=== PATIENT | female | born 1940 | race Asian ===

== ENCOUNTER 2016-10-03 10:49 | Emergency (ER) | payer OTHER, MEDICAID ==
[2016-10-03 10:58] VITALS: RESP 18; TEMP 97.5
[2016-10-03] MEDS ORDERED: IPRATROPIUM/ALBUTEROL 3 ML DEYVIAL IH ONE (11:19)
--- NOTE | 2016-10-03 11:35 | EDPHY ---
H & P Stated Complaint: cough (all family is sick) dialysis patient Time Seen by Provider: 10/03/16 11:32 HPI/ROS: HPI: This 68-year-old female presents to emergency department with chief concern nasal congestion and intermittently productive cough x4 days. Denies fever, chills, myalgias, shortness of breath, chest pain, abdominal pain, nausea , vomiting, diarrhea, rash. Several members of her family have similar symptoms. No history of asthma or pneumonia. Never smoker. 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 ROS:10 point review of systems is negative other than as stated in HPI Source: Patient - Personal History Current Tetanus/Diphtheria Vaccine: Yes - Medical/Surgical History Hx Asthma: No Hx Chronic Respiratory Disease: Yes Hx Diabetes: Yes Hx Cardiac Disease: Yes Hx Renal Disease: Yes Hx Cirrhosis: No Hx Alcoholism: No Hx HIV/AIDS: No Hx Splenectomy or Spleen Trauma: No Other PMH: CVA, TIA,pacemaker, CRF-dialysis patient with fistula in RUE, DMII, CHF, cholecystectomy - Family History Significant Family History: No pertinent family hx - Social History Smoking Status: Never smoked Alcohol Use: None Drug Use: None - Physical Exam Exam: Temp 36.4, heart rate 67, respiratory rate 18, blood pressure 109/47, 98% on room air General: Awake, alert, calm, cooperative. No acute distress. Head: Normalocephalic. Atraumatic. EENT: PERRLA. EOMI. No pallor or injection. Anicteric. No nystagmus. No injection. TMs intact bilaterally with normal landmarks. Rhinorrhea present with moderately erythematous nasal turbinates. Oropharynx without redness, exudates, or lesions. Tonsils 2+ bilaterally, no exudates. Neck: Supple, nontender. No lymphadenopathy. Full range of motion. No meningismus. Respiratory: Breathing unlabored. Breath sounds with few expiratory scattered wheezes. Few scattered rhonchi. No adventitious sounds. CV: Chest nontender, atraumatic. Heart rate regular. No murmur, distal pulses 2+ bilaterally. Brisk cap refill all extremities. GI: Abdomen soft, nontender. Bowel sounds normoactive and positive x4 quadrants. Neuro: Alert. Oriented x 3. Speech clear. Nonfocal cranial nerves throughout. Sensation intact all extremities. Skin: Skin warm, dry, intact. No rashes, abrasions, or lacerations. Skin turgor normal. Extremities: Full range of motion in all 4 extremities. Strength 5+ all extremities. Constitutional: Initial Vital Signs Temperature (C) 36.4 C 10/03/16 10:55 Heart Rate 67 10/03/16 10:55 Respiratory Rate 18 10/03/16 10:55 Blood Pressure 109/47 L 10/03/16 10:55 O2 Sat (%) 98 10/03/16 10:55 O2 Delivery Mode Room Air Allergies/Adverse Reactions: Penicillins Allergy (Severe, Verified 10/03/16 10:54) Anaphylaxis Home Medications: Medication Instructions Recorded Bimatoprost 0.01% [Lumigan 0.01% 1 drops EACHEYE DAILY18 03/05/13 (*)] Clopidogrel Bisulfate [Plavix (*)] 75 mg PO DAILY18 03/05/13 Losartan Potassium [Cozaar] 100 mg PO DAILY18 03/05/13 Simvastatin [Zocor 40 mg] 40 mg PO DAILY 03/05/13 amLODIPine BESYLATE [Norvasc 10 mg 10 mg PO DAILY18 03/05/13 (*)] Aspirin [Aspirin 325 mg (*)] 325 mg PO DAILY18 01/17/14 Cholecalciferol Vit D3 [Vitamin D3 1,000 units PO DAILY 01/17/14 (*)] Docusate Sodium [Colace 100 MG (*)] 100 mg PO TIDMEAL 01/17/14 Levothyroxine [Synthroid 112 mcg 112 mcg PO DAILY@06 01/17/14 (*)] Sevelamer Carbonate [Renvela] 1,600 mg PO DAILY@12 01/17/14 Sevelamer Carbonate [Renvela] 2,400 mg PO BID 01/17/14 Atenolol [Tenormin 50 mg (*)] 50 mg PO BIDMEAL 06/01/14 Herbals/Supplements -Info Only 1 ea PO DAILY 06/01/14 Lactulose [Cephulac 20 gm/30 ml 20 gm PO MOWEFR@1300 06/01/14 oral soln (*)] hydrALAZINE [Apresoline] 25 mg PO BID 06/01/14 Bimatoprost [Lumigan] 1 drop EACHEYE HS 03/06/16 Brinzolamide/Brimonidine Tart 1 drop EACHEYE BID 03/06/16 [Simbrinza 1%-0.2% Eye Drops] Clindamycin HCl [Cleocin HCl] 300 mg PO TID 03/06/16 Insulin Detemir [Levemir] 16 units SC AUGUSTIN@08 03/06/16 Insulin Detemir [Levemir] 20 units SC MOTUWETHFRSA@03/06/16 Albuterol Hfa Anes Only [Proair 2 puffs IH QID PRN #1 mdi 10/03/16 Hfa Anes Only] Azithromycin [Zithromax] 250 mg PO DAILY #6 tab 10/03/16 Medical Decision Making - Diagnostics Imaging: Chest, PA and Lateral History: Cough, dyspnea, possible pneumonia, dialysis patient Comparison: March 18, 2016 Findings: There is chronic or recurrent interstitial disease. There is no new focal infiltrate or consolidation, or pleural effusion. Prominent lung volumes, bronchial wall thickening and cardiomegaly are stable. The pulmonary vascularity does not appear plethora. A right chest wall pacer device and associated bipolar pacer leads remain in place. Right subclavian artery and vein stents remain. Impression: 1. No pneumonia. 2. Chronic cardiomegaly without alveolar pulmonary edema 3. Chronic interstitial lung disease vs recurrent interstitial pulmonary edema . Dictated By: Zaki Veras MD ED Course/Re-evaluation: 1135:68-year-old female presents to emergency department with chief concern nasal congestion with intermittently productive cough times 3-4 days. Several members of her family have similar symptoms. No shortness of breath or chest pain. Afebrile. Vitals stable. Given 1 DuoNeb for scattered expiratory wheezes. Chest x-ray pending. Flu swab negative. 1300: There is no evidence of pneumonia on chest x-ray. Chest x-ray is consistent with chronic interstitial lung disease versus recurrent interstitial pulmonary edema. Patient is 86% on room air with ambulation however she wears 2- 3 L chronically at home. Ambulation with 2.5LO2NC is 97%. Wheezes significantly improved after treatment with DuoNeb. She did go to her Wednesday dialysis last week. Vitals are stable. She is stable for discharge. Will discharge her with albuterol inhaler and have her follow up with primary care Wednesday for recheck without fail Differential Diagnosis: Differential includes but is not limited to in no particular order influenza, pneumonia, bronchitis, other viral URI, reactive airway disease, CHF - Data Points Laboratory Results: 10/03/16 11:30 Influenza Typ A,B (DFA) NEGATIVE FOR FLU (NEGATIVE) Medications Given: Discontinued Medications Albuterol/Ipratropium (Duoneb) 3 ml IH EDNOW ONE Stop: 10/03/16 11:20 Last Admin: 10/03/16 11:30 Dose: 3 ml Departure - Departure Disposition: Home, Routine, Self-Care Clinical Impression: Interstitial lung disease Upper respiratory infection Qualifiers: URI type: unspecified viral URI Qualifier Code: (J06.9) Acute upper respiratory infection, unspecified Condition: Good Instructions: Upper Respiratory Infection (ED) Additional Instructions: Plan: Recheck with primary care provider on Wednesday without fail--When you call to schedule appointment, please let the office know you are an "ER follow up" appointment" Drink plenty of fluids. Rest. Use your albuterol inhaler 2 puffs every 4-6 hours for shortness of breath, wheezing. Azithromycin antibiotic for 5 days as prescribed You may use Mucinex/guaifenesin over the counter to help expectorate mucus with your cough. Use saline spray or saline irrigation to each nostril twice daily-morning and evening. For sore throat, gargle with warm salt water three times daily. Return to Urgent Care or ER if you develop chest pain, difficulty breathing, or difficulty swallowing. Follow up as directed--tell the office you are an "ER follow up appointment when you call. Return here promptly for worsening symptoms such as facial/tooth pain, chest pain, shortness of breath, unremitting fever, nausea, vomiting, difficulty swallowing. Referrals: Octavio Heath MD [Primary Care Provider] - As per Instructions Prescriptions: Albuterol Hfa Anes Only [Proair Hfa Anes Only] 2 puffs IH QID PRN #1 mdi PRN Reason: Short Of Breath/Dyspnea Azithromycin [Zithromax] 250 mg PO DAILY #6 tab
--- NOTE | 2016-10-03 12:23 | DX ---
Chest, PA and Lateral History: Cough, dyspnea, possible pneumonia, dialysis patient Comparison: March 18, 2016 Findings: There is chronic or recurrent interstitial disease. There is no new focal infiltrate or con solidation, or pleural effusion. Prominent lung volumes, bronchial wall thickening and cardiomegaly a re stable. The pulmonary vascularity does not appear plethora. A right chest wall pacer device and as sociated bipolar pacer leads remain in place. Right subclavian artery and vein stents remain. Impression: 1. No pneumonia. 2. Chronic cardiomegaly without alveolar pulmonary edema 3. Chronic interstitial lung disease vs recurrent interstitial pulmonary edema .
[2016-10-03 13:38] VITALS: BP 122/57; PULSE 55; O2SAT 100
== END 2016-10-03 13:37 | disposition home or self-care (01) ==
DX: J84.9 Interstitial pulmonary disease, unspecified (principal); J06.9 Acute upper respiratory infection, unspecified; E11.9 Type 2 diabetes mellitus without complications; I50.9 Heart failure, unspecified; Z79.4 Long term (current) use of insulin; Z79.82 Long term (current) use of aspirin; Z86.73 Personal history of transient ischemic attack (TIA), and cerebral infarction without residual deficits; Z95.0 Presence of cardiac pacemaker

== ENCOUNTER → 2016-10-20 | Day surgery (SDC) | payer OTHER, MEDICAID ==
[~2016-10-20] MED LIST: IOPAMIDOL (ISOVUE-300) 100 ML BTL IV ONE
== END | disposition home or self-care (01) ==
LOC: FIMAGING 08:24
PROVIDERS: ATTEND Internal Medicine Nephrology
PROC: 05753ZZ Dilation of Right Subclavian Vein, Percutaneous Approach (ICD-10-PCS; principal; 2016-10-20)
PROC: 05793ZZ Dilation of Right Brachial Vein, Percutaneous Approach (ICD-10-PCS; 2016-10-20)
DX: T82.858A Stenosis of other vascular prosthetic devices, implants and grafts, initial encounter (principal); N18.6 End stage renal disease; Z99.2 Dependence on renal dialysis; Z66 Do not resuscitate; I77.1 Stricture of artery
CPT/HCPCS: 36902; 36907; 75962; C1769; C1892; C1725; J1644; Q9967

== ENCOUNTER → 2017-01-19 | Day surgery (SDC) | payer OTHER, MEDICAID ==
[~2017-01-19] MED LIST changes: -IOPAMIDOL (ISOVUE-300) 100 ML BTL IV ONE; +IOPAMIDOL (ISOVUE-300) 100 ML BTL ONE
== END | disposition home or self-care (01) ==
LOC: FIMAGING 08:38
PROVIDERS: ATTEND Radiology Diagnostic Radiology
PROC: 05753ZZ Dilation of Right Subclavian Vein, Percutaneous Approach (ICD-10-PCS; principal; 2017-01-19)
DX: T82.858A Stenosis of other vascular prosthetic devices, implants and grafts, initial encounter (principal); N18.6 End stage renal disease; I12.0 Hypertensive chronic kidney disease with stage 5 chronic kidney disease or end stage renal disease; I48.91 Unspecified atrial fibrillation; I50.9 Heart failure, unspecified; E11.9 Type 2 diabetes mellitus without complications; Z88.0 Allergy status to penicillin
CPT/HCPCS: 37248; C1769; C1894; C1725; J1644; Q9967

== ENCOUNTER → 2017-04-29 | Day surgery (SDC) | payer OTHER, MEDICAID | END | disposition home or self-care (01) | LOC: FIMAGING 08:46 | PROVIDERS: ATTEND Internal Medicine Nephrology | DX: T82.858A Stenosis of other vascular prosthetic devices, implants and grafts, initial encounter (principal); N18.6 End stage renal disease; Z99.2 Dependence on renal dialysis; Z88.0 Allergy status to penicillin | CPT/HCPCS: 36901; 36907; C1769; C1894; C1725; J1644; Q9967 ==

== ENCOUNTER 2017-06-13 16:44 | Inpatient (IN) | payer OTHER, MEDICAID ==
[2017-06-13] MEDS ORDERED: IOPAMIDOL (ISOVUE 370) 100 ML BTL IV ONE (16:49)
--- NOTE | 2017-06-13 16:55 | EDPHY ---
H & P Constitutional: Initial Vital Signs Temperature (C) 36.4 C 06/13/17 17:00 Heart Rate 85 06/13/17 17:00 Respiratory Rate 16 06/13/17 17:00 Blood Pressure 154/62 H 06/13/17 17:00 O2 Sat (%) 2 L 06/13/17 17:00 O2 Delivery Mode Nasal Cannula O2 (L/minute) 0.5 Allergies/Adverse Reactions: Penicillins Allergy (Severe, Verified 04/22/17 14:03) Anaphylaxis Home Medications: Medication Instructions Recorded Clopidogrel Bisulfate [Plavix (*)] 75 mg PO DAILY18 03/05/13 Losartan Potassium [Cozaar] 100 mg PO DAILY18 03/05/13 Simvastatin [Zocor 40 mg] 40 mg PO DAILY 03/05/13 amLODIPine BESYLATE [Norvasc 10 mg 5 mg PO DAILY18 03/05/13 (*)] Aspirin [Aspirin 325 mg (*)] 325 mg PO DAILY18 01/17/14 Cholecalciferol Vit D3 [Vitamin D3 1,000 units PO DAILY 01/17/14 (*)] Levothyroxine [Synthroid 112 mcg 112 mcg PO DAILY@01/17/14 (*)] Sevelamer Carbonate [Renvela] 1,600 mg PO TID 01/17/14 Atenolol [Tenormin 50 mg (*)] 50 mg PO BIDMEAL 06/01/14 Herbals/Supplements -Info Only 1 ea PO DAILY 06/01/14 Lactulose [Cephulac 20 gm/30 ml 20 gm PO PRN 06/01/14 oral soln (*)] Bimatoprost [Lumigan] 1 drop EACHEYE HS 03/06/16 Brinzolamide/Brimonidine Tart 1 drop EACHEYE BID 03/06/16 [Simbrinza 1%-0.2% Eye Drops] Insulin Detemir [Levemir] 16 units SC AUGUSTIN@03/06/16 Insulin Detemir [Levemir] 20 units SC MOTUWETHFRSA@03/06/16 Preservision Areds 2 Softgel 1 tab PO DAILY 04/22/17 Prevacid 30 mg PO BID 04/22/17 Atenolol [Tenormin 50 mg (*)] 50 mg PO DAILY PRN 06/13/17 Folic Acid/Vit B Complex and C 0.8 mg PO DAILY@18 06/13/17 [Renal Vitamin Tablet] Sevelamer Carbonate [Renvela] 1,600 - 2,400 mg PO DAILY@12 06/13/17 Medical Decision Making - Diagnostics Imaging Results: Imaging Impressions Chest X-Ray 06/13/17 16:48 Impression: 1. Minimal fluid overload versus minimal CHF 2. No aspiration or pneumonia. Head CT 06/13/17 16:48 Impression: 1. No evidence of acute ischemia or intracranial hemorrhage. 2. Extensive multifocal encephalomalacia and atrophy have not significantly changed since 2013. Findings discussed with emergency department physician, Yaakov Francisco MD on June 13, 2017 at 5:03 p.m. Head CTA 06/13/17 16:49 Impression: 1. Normal intracranial arterial circulation. No evidence of embolic disease or aneurysm. 2. Patent venous system. Findings discussed with emergency department physician, Yaakov Francisco MD on June 13, 2017 at 5:26 p.m. Neck CTA 06/13/17 16:49 Impression: 1. Age-indeterminate subtotal occlusion (95-99%) of the right internal carotid artery (from the origin to the cavernous segment) is new since 2013. 2. Moderate (50-60%) stenosis origin left internal carotid artery due to calcified plaque. 3. Widely patent bilateral vertebral arteries. Findings discussed with emergency department physician, Yaakov Francisco MD on June 13, 2017 at 5:26 p.m. Measurement of carotid stenosis is based on the residual internal carotid diameter with [place] Symptomatic Carotid Endarterectomy Trial (NASCET) based stenosis levels. Imaging: Discussed imaging studies w/ body recall instructor Radiologist, I viewed and interpreted images myself ED Course/Re-evaluation: CHIEF COMPLAINT: Stroke Alert, right hemiparesis HISTORY OF PRESENT ILLNESS: This is a 77 y/o female arriving emergently via EMS as a Stroke Alert with acute onset right-sided deficits at 15:45, about 1 hour prior to arrival. She has medical history that includes 3 prior strokes, diabetes, CHF, end-stage renal disease, and a pacemaker. She has baseline slurred speech from her prior strokes and had previously had right-sided weakness, though it sounds like this resolved after her last stroke. 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 She is on Plavix and aspirin , but no anticoagulants. History from patient obtained via translation from family member. REVIEW OF SYSTEMS: Unobtainable secondary to patient condition. PHYSICAL EXAM: HR, BP, O2 Sat, RR. Temp noted General Appearance: Alert, well hydrated, right-sided weakness, slurred speech, difficulty following commands. Head: Atraumatic without scalp tenderness or obvious injury Eyes: Pupils equal, round, reactive to light and accommodation, EOMI, no trauma , no injection. Nose: Atraumatic, no rhinorrhea, clear. Throat: There is no erythema or exudates, no lesions, normal tonsils, mucus membranes moist. Neck: Supple, non-tender, no lymphadenopathy. Respiratory: No retractions, no distress, no wheezes, and no accessory muscle use. Lungs are clear to auscultation bilaterally. Cardiovascular: Regular rate and rhythm, no murmurs, rubs, or gallops. Good capillary refill all extremities. Functioning right upper arm fistula with good thrill. Gastrointestinal: Abdomen is soft, non-tender, non-distended, no masses, no rebound, no guarding, no peritoneal signs. Musculoskeletal: Atraumatic. Neurological: Alert, able to resist gravity with right arm and leg but globally weak, slurred speech, difficulty following commands. Skin: No rashes, good turgor, no nodules on palpation. PAST MEDICAL HISTORY: 3 prior CVAs, end-stage renal disease on dialysis, CHF, diabetes PAST SURGICAL HISTORY: pacemaker SOCIAL HISTORY: [place]-speaking. Family member translating for me. Audio Specialist: Dr. 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 Ventricular-paced rhythm. See hard copy and/or "tracemaster" electronic copy for interpretation. DIFFERENTIAL DIAGNOSIS: The differential diagnosis for the patient's neurologic deficits included but was not limited to peripheral causes, central causes including CVA, TIA, electrolyte abnormalities and dehydration, cardiogenic causes, atypical causes like migraine syndrome. MEDICAL DECISION MAKIN: Met EMS upon arrival and took report. This is a 77 y/o female with prior CVAs who presents with improving right-sided deficits that began acutely at 15: 45, about 1 hour prior to arrival. She has slurred speech at baseline from prior stroke per family at bedside. Her EMS BGL is 179. She is on aspirin and Plavix and a dialysis patient. 1646: Patient sent directly to CT for head with and without and head and neck angio. 1650: Consulted with Dr. Winchester, [facility]. Per Dr. Winchester, she is not a candidate for TPA due to prior strokes, existing deficits, and current resolving deficits. 1720: CTA shows huge right internal carotid occlusion. Neurology paged. 1734: Reassessed patient and discussed imaging results with her and her family. 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 Speech and cognition is difficult to assess even through allergy and immunology specialist. 1740: Consulted with Dr. Winchester again to determine if patient is now a TPA candidate since her symptoms are crescendoing-decrescendo. He confirms she is still not a TPA candidate due to our inability to tell what her baseline deficits are. He agrees her occluded right carotid does not make sense with her current symptoms, so it is likely not acute nor related to current symptoms. Labs show hyponatremia, hypochloremia, anemia 1748: Spoke with hospitalist service. Dr. Pelletier accepts admission for stroke. - Data Points Laboratory Results: Laboratory Results 06/13/17 17:00 06/13/17 17:00 06/13/17 06/13/17 06/13/17 17:00 17:00 17:00 WBC 9.31 10^3/uL 10^3/uL (3.80-9.50) RBC 3.15 10^6/uL L 10^6/uL (4.18-5.33) Hgb 10.6 g/dL L g/dL (12.6-16.3) POC Hgb Hct 32.1 % L % (38.0-47.0) POC Hct MCV 101.9 fL H fL (81.5-99.8) MCH 33.7 pg pg (27.9-34.1) MCHC 33.0 g/dL g/dL (32.4-36.7) RDW 17.2 % H % (11.5-15.2) Plt Count 210 10^3/uL 10^3/uL (150-400) MPV 10.7 fL fL (8.7-11.7) Neut % (Auto) 69.1 % % (39.3-74.2) Lymph % (Auto) 11.3 % L % (15.0-45.0) Hale % (Auto) 8.1 % % (4.5-13.0) Eos % (Auto) 9.9 % H % (0.6-7.6) Baso % (Auto) 1.0 % % (0.3-1.7) Nucleat RBC Rel Count 0.0 % % (0.0-0.2) Absolute Neuts (auto) 6.44 10^3/uL 10^3/uL (1.70-6.50) Absolute Lymphs (auto) 1.05 10^3/uL 10^3/uL (1.00-3.00) Absolute Monos (auto) 0.75 10^3/uL 10^3/uL (0.30-0.80) Absolute Eos (auto) 0.92 10^3/uL H 10^3/uL (0.03-0.40) Absolute Basos (auto) 0.09 10^3/uL 10^3/uL (0.02-0.10) Absolute Nucleated RBC 0.00 10^3/uL 10^3/uL (0-0.01) Immature Gran % 0.6 % % (0.0-1.1) Immature Gran # 0.06 10^3/uL 10^3/uL (0.00-0.10) PT 14.1 SEC SEC (12.0-15.0) INR 1.10 (0.83-1.16) POC Sodium Sodium 126 mEq/L L mEq/L (134-144) POC Potassium Potassium 5.5 mEq/L H mEq/L (3.5-5.2) POC Chloride Chloride 86 mEq/L L mEq/L (97-110) Carbon Dioxide 22 mEq/l mEq/l (22-31) Anion Gap 18 mEq/L H mEq/L (8-16) POC BUN BUN 90 mg/dL H mg/dL (7-23) Creatinine 9.1 mg/dL H* mg/dL (0.6-1.0) POC Creatinine Estimated GFR 4 Glucose 116 mg/dL H mg/dL (70-100) POC Glucose Calcium 9.1 mg/dL mg/dL (8.5-10.4) 06/13/17 16:51 WBC RBC Hgb POC Hgb 12.9 gm/dL gm/dL (12.6-16.3) Hct POC Hct 38 % % (38-47) MCV MCH MCHC RDW Plt Count MPV Neut % (Auto) Lymph % (Auto) Hale % (Auto) Eos % (Auto) Baso % (Auto) Nucleat RBC Rel Count Absolute Neuts (auto) Absolute Lymphs (auto) Absolute Monos (auto) Absolute Eos (auto) Absolute Basos (auto) Absolute Nucleated RBC Immature Gran % Immature Gran # PT INR POC Sodium 127 mEq/L L mEq/L (134-144) Sodium POC Potassium 5.1 mEq/L H mEq/L (3.3-5.0) Potassium POC Chloride 90 mEq/L L mEq/L (97-110) Chloride Carbon Dioxide Anion Gap POC BUN 92 mg/dL H mg/dL (7-23) BUN Creatinine POC Creatinine 9.9 mg/dL H* mg/dL (0.6-1.0) Estimated GFR Glucose POC Glucose 128 mg/dL H mg/dL (70-100) Calcium Point of Care Test Results: 06/13/17 16:51 POC Sodium 127 L POC Potassium 5.1 H POC Chloride 90 L POC BUN 92 H POC Creatinine 9.9 H* POC Glucose 128 H Departure - Departure Disposition: [facility] Inpatient Acute Clinical Impression: Hyponatremia, Hypochloremia, Right sided weakness, End stage renal disease CVA (cerebral vascular accident) Qualifiers: CVA mechanism: other Qualified Code(s): I63.8 - Other cerebral infarction Anemia Qualifiers: Anemia type: other cause Other causes of anemia: other cause, not classified Qualified Code(s): D64.89 - Other specified anemias Condition: Serious Referrals: Patient,NotPresent [Primary Care Provider] - As per Instructions Report Scribed for: Yaakov Francisco Report Scribed by: Judy Haney Date of Report: 06/13/17 Time of Report: 17:07
[2017-06-13 17:19] LABS: % IMMATURE GRANULYOCYTES 0.6 % (0.0-1.1); ABSOLUTE IMMATURE GRANULOCYTES 0.06 10^3/uL (0.00-0.10); ADD DIFF? NO; ADD MORPH? NO; ADD SCAN? NO; ATYPICAL LYMPHOCYTE FLAG 0 (0-99); FRAGMENT RBC FLAG 0 (0-99); HEMATOCRIT 32.1 % (38.0-47.0); HEMOGLOBIN 10.6 g/dL (12.6-16.3); LEFT SHIFT FLG 0 (0-99); LIPEMIA HEMOLYSIS FLAG 80 (0-99); MEAN CELL HEMOGLOBIN 33.7 pg (27.9-34.1); MEAN CELL VOLUME 101.9 fL (81.5-99.8); MEAN PLATELET VOLUME 10.7 fL (8.7-11.7); PLATELET CLUMPS FLAG 20 (0-99); PLATELET COUNT 210 10^3/uL (150-400); RED BLOOD CELL COUNT 3.15 10^6/uL (4.18-5.33); RED CELL DISTRIBUTION WIDTH 17.2 % (11.5-15.2)
[2017-06-13 17:28] LABS: INR 1.1 (0.83-1.16); PROTIME(PATIENT) 14.1 SEC (12.0-15.0)
[2017-06-13 17:32] LABS: ANION GAP 18 mEq/L (8-16); CALCIUM 9.1 mg/dL (8.5-10.4); CARBON DIOXIDE 22 mEq/l (22-31); CHLORIDE 86 mEq/L (97-110); GLOMERULAR FILTRATION RATE 4; GLUCOSE 116 mg/dL (70-100); POTASSIUM 5.5 mEq/L (3.5-5.2); SODIUM 126 mEq/L (134-144)
--- NOTE | 2017-06-13 17:33 | CPEKG ---
Heart Rate: 60 RR Interval: 1000 QRSD Interval: 168 QT Interval: 512 QTC Interval: 512 QRS [place]: -71 T Wave [place]: 141 EKG Severity - ABNORMAL ECG - EKG Impression: AFIB/FLUTTER AND VENTRICULAR-PACED RHYTHM Electronically Signed By: Yaakov Francisco 13-Jun-2017 18:19:15
[2017-06-13 17:35] LABS: CREATININE 9.1 mg/dL (0.6-1.0)
[2017-06-13] MEDS ORDERED: ONDANSETRON DISINTEGRATING 4 MG TAB PO PRN (19:16)
[2017-06-13] MEDS ORDERED: ONDANSETRON 4 MG/2 ML VIAL IVP PRN (19:16)
[2017-06-13] MEDS ORDERED: PROMETHAZINE HCL 25 MG/ML INJ IVP PRN (19:16)
[2017-06-13] MEDS ORDERED: ACETAMINOPHEN 325 MG TAB PO PRN (19:16)
[2017-06-13] MEDS ORDERED: ATENOLOL 50 MG TAB PO PRN (19:20)
[2017-06-13] MEDS ORDERED: LACTULOSE 20 GM/30 ML UDCUP PO PRN (19:20)
[2017-06-13] MEDS ORDERED: D50W 25 GM/50 ML SYR IVP PRN (20:33)
[2017-06-13] MEDS ORDERED: D10W 250 ML PRN HYPOGLYCEMIA IV (21:00)
--- NOTE | 2017-06-13 21:30 | GHP ---
[f rep st] HISTORY AND PHYSICAL DATE OF ADMISSION: 06/13/2017 CHIEF COMPLAINT: Right arm and left leg weakness. HISTORY: This is a 77-year-old female who has a past medical history that includes end-stage renal d isease, on chronic hemodialysis, multiple strokes reported at 3, as well as atrial fibrillation, not on chronic anticoagulation due to recurrent bleeding at the fistula site, presenting with acute onset of right arm weakness and left leg weakness. History is obtained per patient's son as patient herse lf has been largely nonverbal since her last stroke and also speaks Tibetan. Patient is able to say a few words in Tibetan and also answer questions yes or no. Per patient's son, today she had inabili ty to move her right arm and essentially would fall to her side if he lifted it in the air. She is a lso having difficulty walking and it seemed as if her left leg was weak. Both of these symptoms have improved to some extent since arrival, but she does remain slightly more weak on the right upper ext remity and left lower extremity. He notes that prior to today, she was in her normal state of health . She denies any chest pain, shortness of breath, urinary issues. Friends present at bedside are qu ite concerned that this is secondary to her blood sugar, although her blood sugars all throughout the day have been greater than 100. They state that she does become symptomatic if her blood sugar gets as low as 60 or 70. She is on 3 times a week hemodialysis and is due for her next dialysis run on M , tomorrow. She has not missed any recent sessions. PAST MEDICAL HISTORY: 1. End-stage renal disease, on chronic hemodialysis Wednesday, Wednesday, Wednesday. 2. Atrial fibrillation, not on chronic anticoagulation secondary to recurrent bleeds in the past. 3. Hypertension. 4. Diabetes on chronic insulin. 5. CVA x3. 6. Diastolic heart failure. 7. Pulmonary hypertension. 8. Glaucoma. PAST SURGICAL HISTORY: 1. Cholecystectomy. 2. Dialysis fistula. 3. Permanent pacemaker. 4. Gastrostomy tube that has now been removed. FAMILY HISTORY: Parents are . She is unaware of any significant medical issues in her paren ts per prior reports. SOCIAL HISTORY: Patient is originally from [facility], has been here for 15 years. She is and hernandez s 2 sons, 1 of which is at her bedside. REVIEW OF SYSTEMS: This is obtained through the help of patient's son, and is unremarkable except as per HPI. MEDICATIONS: Home medications include: 1. Cholecalciferol. 2. Lactulose. 3. Insulin. 4. PreserVision. 5. Bimatoprost. 6. Simbrinza eye drops. 7. Renal vitamin tablet. 8. Sevelamer. 9. Prevacid. 10. Aspirin. 11. Levothyroxine. 12. Plavix. 13. Amlodipine. 14. Simvastatin. 15. Atenolol. 16. Losartan. ALLERGIES: Penicillin. PHYSICAL EXAM: VITAL SIGNS: BP 169/54, heart rate 61, respiratory rate 16, O2 sats 96% on half a L, temperature 36.5. GENERAL APPEARANCE: This is an elderly female. She is awake and alert. She is i n no acute distress. EYES: Pupils are anicteric. She has difficulty following directions, but extr aocular movements seem to be intact. Pupils equal, round, and reactive. HEENT: Oropharynx is clear . Patient is edentulous. CARDIOVASCULAR: Regular rate and rhythm, no MRG. PULMONARY: CTA bilater ally. Normal work of breathing. ABDOMEN: Soft, nontender, nondistended. EXTREMITIES: No clubbing , cyanosis, or edema. SKIN: Warm dry well perfused. NEURO/PSYCH: Patient is awake and alert. She has about 4/5 weakness on the right compared to the left, but again this is limited by her ability t o follow commands consistently. Left lower extremity is about 4/5, compared to the right. Sensation is intact. Per family states speech is limited, but is at baseline. CLINICAL DATA: Labs reviewed. Significant for a white blood cell count of 9.3, hematocrit of 32, pl atelets of 210. INR is 1.1. Sodium is 126, potassium 5.5, chloride of 86, BUN of 90, creatinine 9.1 , glucose of 116. Head CT personally reviewed and interpreted is unremarkable. Head CTA shows normal intracranial arterial circulation without embolic disease or aneurysm. Neck CTA shows subtotal occlusion 95% to 99% of the right internal carotid. New since 2014, moderate stenosis of the left internal carotid 50% to 60%. EKG personally reviewed and interpreted shows atrial fibrillation, V-paced rhythm. Chest x-ray perso deb reviewed and interpreted shows possible minimal fluid overload. ASSESSMENT AND PLAN: This is a 77-year-old female, past medical history of multiple strokes, atrial fibrillation and end-stage renal disease presenting with new onset right upper extremity and left low er extremity weakness with bilateral carotid disease and atrial fibrillation off anticoagulation. 1. Suspected stroke, somewhat unusual in a patient who has bilateral signs including right upper ext remity and left lower extremity weakness. She does have known atrial fibrillation, but is not curren tly on anticoagulation. She does also have bilateral carotid artery disease, right greater than left on CTA of the neck. Unfortunately, patient is unable to undergo MRI due to pacemaker presence. Hea d CT did not show acute stroke. Plan will be for monitoring on telemetry. Echocardiogram in the [facility]. Neurology consult is pending. The patient was not a t-PA candidate given rapid improvement of her symptoms. 2. Carotid disease, again as per above, patient with 95% to 99% stenosis of the right carotid and 50 % to 60% of the left. In discussion with family and friends present at bedside, she would likely not be interested in surgery if this were recommended. For now, will await neurology consult. 3. Atrial fibrillation. Patient has a permanent pacemaker and is noted to be in atrial fibrillation and V-paced. She is rate controlled. Again, she is not currently on anticoagulation despite a very high CHADS vascular score secondary to having issues with bleeding at her dialysis site. She is on aspirin and Plavix. Consideration of anticoagulation should be considered and this will need to be d iscussed further with patient and her family. 4. End-stage renal disease. Patient is on chronic hemodialysis. Renal has been consulted and likel y patient will undergo dialysis in the morning. 5. Hyponatremia. This is a chronic intermittent problem for this patient with chronic kidney diseas e and likely related to same. Will monitor post dialysis. 6. Diabetes. Blood sugars have been in the low 100s. Family is quite concerned that hypoglycemia c ould be contributing to her presentation although this seems less likely given lack of hypoglycemia. Will continue to check serial fingerstick blood sugars. Will continue her home regimen. 7. Hypertension. She does remain moderately hypertensive, but unlikely to be high enough to be cont ributing to her current presentation. Will continue to monitor. 8. Disposition, inpatient status. Patient will need greater than 48 hours stay for evaluation and m anagement of above. Neurology and Renal have been consulted. PT,OT will need to be involved. 9. Patient is new to my care. Old records reviewed, summarized as per HPI and past medical history. Care plan reviewed with ER physician, including plans for workup of stroke. Further history obtain ed from patient's family present at bedside. /[id number]/MODL
[2017-06-13 21:43] LABS: TROPONIN I 0.023 ng/mL (0.000-0.034)
[2017-06-14] MEDS: BIMATOPROST 0.01% 2.5 ML OPHT.BTL EACHEYE SCH ×2 (04:39→20:58)
[2017-06-14] MEDS: Brinzolamide/Brimonidine Tart [Simbrinza 1%-0.2% Eye Drops] 1 DROP EACHEYE SCH ×3 (04:39→20:59)
[2017-06-14 04:44] LABS: % IMMATURE GRANULYOCYTES 0.5 % (0.0-1.1); ABSOLUTE IMMATURE GRANULOCYTES 0.05 10^3/uL (0.00-0.10); ADD DIFF? NO; ADD MORPH? NO; ADD SCAN? NO; ATYPICAL LYMPHOCYTE FLAG 0 (0-99); FRAGMENT RBC FLAG 0 (0-99); HEMATOCRIT 30.7 % (38.0-47.0); HEMOGLOBIN 10.1 g/dL (12.6-16.3); LEFT SHIFT FLG 0 (0-99); LIPEMIA HEMOLYSIS FLAG 80 (0-99); MEAN CELL HEMOGLOBIN 33.2 pg (27.9-34.1); MEAN CELL HEMOGLOBIN CONCENTR. 32.9 g/dL (32.4-36.7); MEAN PLATELET VOLUME 10.4 fL (8.7-11.7); PLATELET CLUMPS FLAG 0 (0-99); PLATELET COUNT 217 10^3/uL (150-400); RED BLOOD CELL COUNT 3.04 10^6/uL (4.18-5.33); RED CELL DISTRIBUTION WIDTH 17.1 % (11.5-15.2)
[2017-06-14 04:58] LABS: ANION GAP 16 mEq/L (8-16); CARBON DIOXIDE 21 mEq/l (22-31); CHLORIDE 86 mEq/L (97-110); CHOLESTEROL 89 mg/dL (140-220); CHOLESTEROL/HDL RATIO 1.89 RATIO (1.00-4.44); GLOMERULAR FILTRATION RATE 4; GLUCOSE 147 mg/dL (70-100); HIGH DENSITY LIPOPROTEIN 47 mg/dL (40-85); LOW DENSITY LIPOPROTEIN 28 mg/dL (80-100); NON-HIGH DENSITY LIPOPROTEIN 42 mg/dL (90-129); POTASSIUM 5.5 mEq/L (3.5-5.2); SODIUM 123 mEq/L (134-144); TRIGLYCERIDE 72 mg/dL (35-135); VERY LOW DENSITY LIPOPROTEINS 14 mg/dL (8-25)
[2017-06-14 05:07] LABS: TROPONIN I 0.021 ng/mL (0.000-0.034)
--- NOTE | 2017-06-14 07:45 | PDMN ---
Medical Necessity Medical necessity: est los>2mn for suspected stroke with carotid disease; admit for neuro and renal consults, PT/OT; comorbid afib not on AC r/t recurrent bleeding at fistula site, ESRD, DM, htn, heart failure, hyponatemia, hx CVA x 3; per order and H&P 06/13/17
--- NOTE | 2017-06-14 08:26 | SOAPPROG ---
[facility] Progress Note Assessment/Plan: Assessment:Plan: ESRD-regularly MWF at [facility] under the care of Dr. Argueta -plan for Hd today Access-RUE AVF -looks great Anemia-CPM Neuro-s/p CVA -appears to be recovering nicely Hyperkalemia-will Rx with dialysis Dispo-pending 06/14/17 08:24 Subjective: stable overnite, RUE weakness improving, alert and responsive Objective: Vital Signs Temp Pulse Resp BP Pulse Ox 36.3 C 63 22 H 149/84 H 94 06/14/17 07:24 06/14/17 07:24 06/14/17 07:24 06/14/17 07:24 06/14/17 07:24 Laboratory Results 06/14/17 04:16 06/14/17 04:16 PT 14.1 SEC (12.0-15.0) 06/13/17 17:00 INR 1.10 (0.83-1.16) 06/13/17 17:00 Physical Exam - Physical Exam General Appearance: WD/WN, alert, no apparent distress EENT: normal ENT inspection Neck: normal inspection Respiratory: lungs clear, normal breath sounds, No respiratory distress Cardiac/Chest: regular rate, rhythm, No diastolic murmur, No systolic murmur Abdomen: normal bowel sounds, non-tender Skin: normal color, warm/dry Extremities: other (AVF patent with good bruit and thrill), No swelling Neuro/Psych: alert, normal mood/affect ICD10 Worksheet Patient Problems: Problems Problem Status Onset Anemia Acute CVA (cerebral vascular accident) Acute End stage renal disease Acute Hypochloremia Acute Hyponatremia Acute Right sided weakness Acute Chronic Disease Management/Transitional Care Program Active Chronic renal failure Acute Deep venous thrombosis of right upper extremity Acute Diabetes mellitus Acute Stroke Acute Subdural hematoma Acute
[2017-06-14] MEDS: LEVOTHYROXINE 112 MCG TAB PO SCH (08:40)
[2017-06-14] MEDS: PRESERVISION AREDS2 FORMULA EYE VIT 1 EACH PO SCH (11:16)
[2017-06-14] MEDS: CHOLECALCIFEROL VIT D3 1,000 UNITS TAB PO SCH (11:18)
[2017-06-14] MEDS: ATORVASTATIN CALCIUM 20 MG TAB PO SCH (11:19)
[2017-06-14] MEDS: PANTOPRAZOLE SODIUM 40 MG TAB PO SCH ×3 (11:19→20:57)
[2017-06-14] MEDS: Sevelamer Carbonate [Renvela] 800MG TAB PO SCH ×3 (11:28→20:55)
--- NOTE | 2017-06-14 12:22 | NEUROPROG ---
Assessment: HOSPITAL NEUROLOGY CONSULT REQUESTING: Bertram Pelletier MD REASON: possible stroke HPI: 77 year old right-handed woman from [facility] who has a history of ESRD of chronic dialysis, afib with PPM (not anticoagulated due to recurrent AVF bleed), HTN, IDDM, multiple embolic strokes, carotid artery disease who presented to our ED yesterday due to multifocal weakness. Patient has suffered multiple ischemic strokes over the years related to cardioembolism. She is baseline aphasic and does have some difficulty with her right side, though has been ambulatory with assistance. Her son is present at bedside and notes she tends to get weaker when her blood glucose drops. Yesterday, the patient appeared to have worsening right-sided weakness. Specifically, patient was sitting in a chair and her right arm was dangling off to the side. Her sone tried to move the arm and it was flaccid. There was also concern that her left leg was weak. Family carried her to a bed to lay down. They called their food quality tester who instructed them to activate EMS. Her son took a finger stick glucose and noted her sugar to be "good." On transport to the ED, the patient apparently had returning function in her extremities, though this seemed to wax and wane. Telestroke consultation was obtained and she was not a lytic candidate due to improving symptoms. She continues to regain function since admission. Family reports the patient has not missed any dialysis appointment and they report the patient has not been ill recently. ROS: As per the HPI, otherwise a complete 12 point ROS was performed and is negative ALLERGIES AND MEDS: As recorded in the EMR - reviewed and reconciled PFSH: As per the intake H&P by Dr. Pelleiter from yesterday EXAM: VS reviewed in EMR GEN: WDWN laying in NAD HEENT: NCAT, sclera anicteric, conjunctiva not injected, arcus senilis present OU, MMM, oropharynx clear, no scalp tenderness NECK: supple, nontender, no meningismus CV: RRR s1 s2 wo m/r/c/g. Carotid pulses 2+ wo bruit NEURO: MS: awake, alert, attentive. She is non-Australian speaking. Family reports no dysarthria. Baseline aphasia with minimal verbal output. Follows commands. Attends to both sides. She appears flat/withdrawn. Unable to assess higher cortical function due to aphasia. CN: pupils 3mm round and reactive. Intolerant to fundoscopy. Blink to threat in all fileds OU. Primary gaze centered. Full ocular motility, though smooth pursuit with saccadic intrusions and motor impersistence. Facial sensation preserved. Face symmetric. Hearing grossly intact to finger rub. Palatoglossal movements intact. Shoulder shrug and head turn strong. MOTOR: normal bulk/tone. No adventitial movements. UMN pattern of weakness RUE 4+/5, with subtle pronator drift RUE SENSORY: intact LT/PP throughout and symmetric. No extinction. COORD: no ataxia FN/HS. Payam labored R>L. REFLEX: plantars equivocal. No clonus. DTRS trace. GAIT: deferred to PT safety stephy DATA REVIEW: Labs reviewed in EMR PERSONALLY INTERPRETED RESULTS AND DATA: CT head wo - chronic encephalomalacia in the bilateral frontal lobes, left temporal lobe and left parietal lobe. Area of chronic infarct in the right deep white matter/basal ganglia. CTA head/neck - subtotal occlusion of DORIS from origin to intracranial cavernous section, 50-60% stenosis LICA. IMPRESSION AND RECOMMENDATIONS: // SUSPECT RECRUDESCENCE OF OLD STROKE DEFICITS // SUBTOTAL DORIS OCCLUSION // AFIB - NOT ON ANTICOAGULATION // HTN // HLD // IDDM // ESRD OF DIALYSIS // HX MULTIPLE EMBOLIC STROKES Patient with waxing/waning RUE weakness and LLE weakness, continuing to improve. She has PPM, so cannot assess for new stroke from a tissue-based perspective, but clinically the crossed weakness or RUE and LLE does not localize well - could be multifocal embolic, but subtotal ODRIS occlusion would really makes cardioembolism to right anterior circulation improbable (which would cause LLE weakness). I am more concerned about recrudescence of old deficits from a metabolic disturbance. She has old areas of encephalomalacia that would correspond to these multifocal deficits. She is in need of dialysis today - unsure of what her baseline interdialysis lab measures are, but her Cr and BUN are exceedingly high, which could cause old deficits to emerge again. Same with electrolyte disturbance. She has no obvious infection and has not been exposed to sedating/ disinhibiting medications. Would favor seeing how she responds to dialysis today. In any event, if this were to be a new stroke she is already on maximum medical therapy for secondary prevention. She was taken off anticoagulation due to recurrent bleeding, so is on dual antiplatelet therapy. Already on statin with LDL < 70, already on insulin and long-term goal is to have A1c < 6.5. BP is being managed by nephrology. Carotid disease is being managed with medical therapy - she has long-segment subtotal occlusion extending intracranially, so she would not be a CEA candidate , and given the subtotal occlusion and long-segment she would not be a stenting candidate. Her overall health status would likely preclude surgical intervention in any case. Continue to optimize overall metabolic status with primary team and nephrology. Would consider palliative care in the future, as we really don't have much more to offer from a stroke preventive standpoint, in combination with her overall health status. Objective: Vital Signs Temp Pulse Resp BP Pulse Ox 36.4 C 62 20 141/50 H 92 06/14/17 11:59 06/14/17 11:59 06/14/17 11:59 06/14/17 11:59 06/14/17 11:59 Laboratory Results 06/14/17 04:16 06/14/17 04:16 PT 14.1 SEC (12.0-15.0) 06/13/17 17:00 INR 1.10 (0.83-1.16) 06/13/17 17:00 Allergies/Adverse Reactions: Penicillins Allergy (Severe, Verified 04/22/17 14:03) Anaphylaxis
--- NOTE | 2017-06-14 13:24 | ECHO ---
[email or web address] [address] [address] Main: [phone] Fax: Transthoracic Echocardiogram Name: ZURDO AREVALO MR#: [id number] Study Date: 06/14/2017 Study Time: 07:51 AM Date of : 1940 Age: 77 year(s) Height: 152.4 cm (60 in.) Weight: 76.66 kg (169 lb.) BSA: 1.74 m2 Gender: Female Examination: Echo Indication: Ischemic stroke, Pacer Image Quality: Contrast: Requested by: Bertram Pelletier BP: 149 mmHg/84 mmHg Heart Rate: Rhythm: Indication: Ischemic stroke, Pacer Procedure Staff Physical Metallurgist: Ying Woodard Reading Physician: Rashida Nunez Requesting Provider: Conclusions: Normal size left ventricle. The ejection fraction is visually estimated to be 60 %. LV septal wall consistent with conduction abnormality.. Normal size right ventricle. There is a pacemaker lead noted in the right ventricle. The left atrium is mildly to moderately dilated. No bubble study performed (non working IV). Mild to moderate mitral regurgitation. No aortic valve stenosis is present. Moderate to severe tricuspid valve regurgitation. The pulmonary artery pressure is severely increased. RVSP is 70-75 mmHG.. Compared with 11/2015 degree of PHTN is worse Measurements: Chambers Valvular Assessment AV/MV Valvular Assessment TV/PV Normal Normal Normal Name Value Range Name Value Range Name Value Range Ao Kim (MM): 2.9 cm (2.2 cm-3.7 AV meanP mmHg ( - ) TR Vmax: 4.04 mm/s ( - ) cm) MV E Vmax: 1.49 m/s ( - ) TR PGmax: 65 mmHg ( - ) IVSd (2D): 0.9 cm (0.6 cm-1.1 MV A Vmax: 0.48 m/s ( - ) syst. PAP: 75 mmHg ( - ) cm) MV E/A: 3.10 ( - ) LVDd (2D): 4.5 cm (3.9 cm-5.3 cm) LVDs (2D): 3.0 cm (2.1 cm-4 cm) LVPWd (2D): 0.7 cm ( - ) LVOTd 1.7 cm 1.7 cm mm LVEF (2D): 61 (>=54 %) Visual EF: 60 % Patient: ZURDO AREVALO Study Date: 06/14/2017 Page 1 of 2 07:51 AM Continued Measurements: Chambers Valvular Assessment AV/MV Valvular Assessment TV/PV Name Value Name Value Name Value LADs: 4.1 cm MV DecTime: 215 m/s CVP (est.): 10 mmHg LADs Lon.0 cm MV E' Septal: 0.05 m/s LA Area: 24.5 cm2 MV E/E' Septal: 28.80 MV E/E' Lateral: 30.00 Findings: Left Ventricle: Normal size left ventricle. The ejection fraction is visually estimated to be 60 %. Diastolic dysfunction is present. . LV septal wall consistent with conduction abnormality.. Right Ventricle: Normal size right ventricle. There is a pacemaker lead noted in the right ventricle. Left Atrium: The left atrium is mildly to moderately dilated. No bubble study performed (non working IV). Right Atrium: The right atrium is normal in size. Mitral Valve: Mild mitral annular calcification. Mild to moderate mitral regurgitation. Aortic Valve: The aortic valve is tri-leaflet. Aortic sclerosis is present. No aortic valve stenosis is present. There is no aortic valve regurgitation. Tricuspid Valve: The tricuspid valve appears normal. Moderate to severe tricuspid valve regurgitation. The pulmonary artery pressure is severely increased. RVSP is 70-75 mmHG.. Pulmonic Valve: The pulmonic valve is normal in appearance. Trivial pulmonic valve regurgitation. Pericardium: No pericardial effusion. (No Signature Object) Patient: ZURDO AREVALO Study Date: 06/14/2017 Page 2 of 2 07:51 AM [id number]
--- NOTE | 2017-06-14 15:05 | HOSPPROG ---
Hospitalist Progress Note Assessment/Plan: 1. TIA vs CVA with hx prev CVAs -revwd care plan with neuro, likely 'recrudescence' of old CVA bc of wax/ waning sxs -already on max med therapy -plan to re-eval tomorrow after dialysis -will need to review care plan with family/assess resources, consider palliative consult -PT/OT 2. ESRD on HD -appreciate renal assistance -HD today 3. A fib, pacer -revwd echo results -worsening pHTN noted -antiplt but no blood thinners bc of bleeding concern at access sites per history 4. DM, insulin dependent -SSI along with scheduled insulin 5. HTN -home meds 6. Anemia -chronic, stable 7. Hyponatremia/hyperkalemia -chronic -per renal 8. Hypothyroid -home med DISPO- 1-2 more mdnts depending upon re-eval in AM DNR PCP > 30 mins in pt care, new pt to me, reviewing records/coordination of care Subjective: Sleeping but awakens easily. Pleating Supervisor in room. Says she 'ate well' earlier today. Awaiting dialysis. No known v/d/fever recently except 1x yesterday with 'phlegm/vomit.' Seems to be moving all extremeties 'normally' and responding 'normally' per box toe stitcher. Family due to room later. Objective: Vital Signs Temp Pulse Resp BP Pulse Ox 97.5 F 62 20 141/50 H 92 06/14/17 11:59 06/14/17 11:59 06/14/17 11:59 06/14/17 11:59 06/14/17 11:59 Laboratory Results 06/14/17 04:16 06/14/17 04:16 PT 14.1 SEC (12.0-15.0) 06/13/17 17:00 INR 1.10 (0.83-1.16) 06/13/17 17:00 - Time Spent With Patient Time Spent with Patient: greater than 25 minutes Time Spent with Patient: Greater than 25 minutes spent on this patients care, greater than 50% of time spent counseling, educating, and coordinating care regarding the above mentioned plan. - Physical Exam Constitutional: no apparent distress, not in pain, No other Ears, Nose, Mouth, Throat: moist mucous membranes Cardiovascular: regular rate and rhythym Respiratory: no respiratory distress, no rales or rhonchi, clear to auscultation (anteriorally) Gastrointestinal: normoactive bowel sounds, soft, non-tender abdomen Skin: warm Musculoskeletal: other (ESPARZA,) Neurologic: other ( awakens easily, responds to questions) ICD10 Worksheet Patient Problems: Problems Problem Status Onset Anemia Acute CVA (cerebral vascular accident) Acute End stage renal disease Acute Hypochloremia Acute Hyponatremia Acute Right sided weakness Acute Chronic Disease Management/Transitional Care Program Active Chronic renal failure Acute Deep venous thrombosis of right upper extremity Acute Diabetes mellitus Acute Stroke Acute Subdural hematoma Acute
[2017-06-14] MEDS ORDERED: REFRESH TEARS EACHEYE PRN (15:10)
[2017-06-14] MEDS ORDERED: D50W 25 GM/50 ML SYR IVP PRN (15:27)
[2017-06-14] MEDS ORDERED: CARBOXYMETHYLCELLULOSE 1% 0.4 ML DROPERETTE EACHEYE PRN (15:31)
--- NOTE | 2017-06-14 17:04 | ASMTCMCOM ---
CM Note CM Note Notes: Pt admitted with acute CVA, R arm and L leg weakness. Hx ESRD with dialysis MWF. Pt has had [facility] in past. PT has cleared, OT recommending H/HC/24 hr supervision. She live in a [employer] [place] term with good family support. She is mostly nonverbal and from [facility]. Pt's children are her MDPOAs - sons Deyvi and Zeynep [phone]. CM to follow for any d/c needs. Date Signed: 06/14/2017 05:03 PM Electronically Signed By:VLADISLAV Trejo
[2017-06-14] MEDS ORDERED: [UNRECOGNIZED DRUG - OTHER] PO SCH (18:00)
[2017-06-14] MEDS ORDERED: ASPIRIN 325 MG TAB PO SCH (18:00)
[2017-06-14] MEDS ORDERED: ATENOLOL 50 MG TAB PO SCH (18:00)
[2017-06-14] MEDS ORDERED: LOSARTAN POTASSIUM 50 MG TAB PO SCH (18:00)
[2017-06-14] MEDS ORDERED: NEPHROVITE FOLIC ACID/VIT B&C 1 TAB PO SCH (18:00)
[2017-06-14] MEDS ORDERED: CLOPIDOGREL BISULFATE 75 MG TAB PO SCH (18:00)
[2017-06-14] MEDS: INSULIN LISPRO 100 UNIT/ML SC SCH (18:43)
[2017-06-15 05:42] LABS: ALBUMIN 3.9 g/dL (3.5-5.0); ANION GAP 14 mEq/L (8-16); CALCIUM 9.2 mg/dL (8.5-10.4); CARBON DIOXIDE 26 mEq/l (22-31); CHLORIDE 92 mEq/L (97-110); GLOMERULAR FILTRATION RATE 7; GLUCOSE 164 mg/dL (70-100); POTASSIUM 4.4 mEq/L (3.5-5.2); SODIUM 132 mEq/L (134-144)
[2017-06-15] MEDS: LEVOTHYROXINE 112 MCG TAB PO SCH (05:59)
[2017-06-15] MEDS: INSULIN LISPRO 100 UNIT/ML SC SCH ×2 (07:56→12:39)
[2017-06-15] MEDS: Sevelamer Carbonate [Renvela] 800MG TAB PO SCH ×2 (07:59→12:39)
[2017-06-15] MEDS: Brinzolamide/Brimonidine Tart [Simbrinza 1%-0.2% Eye Drops] 1 DROP EACHEYE SCH (11:29)
[2017-06-15] MEDS ORDERED: PANTOPRAZOLE SODIUM 40 MG TAB PO SCH (11:30)
[2017-06-15] MEDS ORDERED: PRESERVISION AREDS2 FORMULA EYE VIT 1 EACH PO SCH (11:30)
[2017-06-15] MEDS ORDERED: CHOLECALCIFEROL VIT D3 1,000 UNITS TAB PO SCH (11:30)
[2017-06-15] MEDS ORDERED: ATORVASTATIN CALCIUM 20 MG TAB PO SCH (11:30)
[2017-06-15] MEDS: PRESERVISION AREDS2 FORMULA EYE VIT 1 EACH PO SCH (11:36)
[2017-06-15] MEDS: ATORVASTATIN CALCIUM 20 MG TAB PO SCH (11:36)
[2017-06-15] MEDS: CHOLECALCIFEROL VIT D3 1,000 UNITS TAB PO SCH (11:37)
[2017-06-15] MEDS: PANTOPRAZOLE SODIUM 40 MG TAB PO SCH (11:37)
[2017-06-15 12:12] VITALS: BP 127/51; PULSE 60; RESP 17; TEMP 97.4; O2SAT 91
--- NOTE | 2017-06-15 14:49 | ASDISCHSUM ---
Discharge Information Plan Status:Home with No Needs Medically Cleared to Leave: Discharge Date:06/15/2017 02:32 PM CM D/C Disposition:Home, Routine, Self-Care ADT D/C Disposition:Home, Routine, Self-Care Projected Discharge Date:06/15/2017 02:32 PM Transportation at D/C: Discharge Delay Reason: Follow-Up Date:06/15/2017 02:32 PM Discharge Slot: Final Diagnosis: Placement Information Patient Contact Information Contact Name:HAM Relationship:Jono Address:[address] Work Phone: City:[place] Alternate Phone: [facility] Code:[place] [address] Email: Financial Information Financial Class: Primary Plan Desc:MEDICARE INPATIENT Primary Plan Number:[id number] Secondary Plan Desc:MEDICA[place] Secondary Plan Number:[id number] Assessment Information [facility] CM Progress Note CM Note CM Note Notes: Pt admitted with acute CVA, R arm and L leg weakness. Hx ESRD with dialysis MWF. Pt has had [facility] in past. PT has cleared, OT recommending H/HC/24 hr supervision. She live in a [employer] snf with good family support. She is mostly nonverbal and from [facility]. Pt's children are her MDPOAs - sons Deyvi and Zeynep [phone]. CM to follow for any d/c needs. Date Signed: 06/14/2017 05:03 PM Electronically Signed By:VLADISLAV Trejo [facility] CM Progress Note CM Note CM Note Notes: Pt medically stable for d/c w family and community support. No CM d/c needs identified. Date Signed: 06/15/2017 02:48 PM Electronically Signed By:VLADISLAV Lopez Intervention Information Intervention Type:*IM-Signed Date of Service:06/15/2017 01:43 PM Patient Type:Inpatient Staff Member:Елена Acuna Hours: Discipline: Severity: Comment:
== END 2017-06-15 14:32 | disposition home or self-care (01) | DRG 64 ==
LOC: EDUNIT# → F3N 18:33
PROVIDERS: ADMIT Internal Medicine; ATTEND Internal Medicine
PROC: 5A1D70Z Performance of Urinary Filtration, Intermittent, Less than 6 Hours Per Day (ICD-10-PCS; principal; 2017-06-14)
DX: I63.8 Other cerebral infarction (principal); I12.0 Hypertensive chronic kidney disease with stage 5 chronic kidney disease or end stage renal disease; N18.6 End stage renal disease; G81.91 Hemiplegia, unspecified affecting right dominant side; E87.1 Hypo-osmolality and hyponatremia; I65.23 Occlusion and stenosis of bilateral carotid arteries; E11.9 Type 2 diabetes mellitus without complications; I50.9 Heart failure, unspecified; I48.91 Unspecified atrial fibrillation; E87.5 Hyperkalemia; D64.9 Anemia, unspecified; Z99.2 Dependence on renal dialysis; Z79.4 Long term (current) use of insulin; Z86.73 Personal history of transient ischemic attack (TIA), and cerebral infarction without residual deficits; Z95.0 Presence of cardiac pacemaker; Z66 Do not resuscitate
CPT/HCPCS: 82947-QW; 92610-GN; 97116-GP; 97161-GP; 97166-GO; 97530-GP; G8978-GP-CI; G8979-GP-CI; G8980-GP-CI; G8987-GO-CL; G8988-GO-CJ; G8996-GN-CH; G8997-GN-CH; G8998-GN-CH; Q9967

== ENCOUNTER → 2017-07-06 | Day surgery (SDC) | payer OTHER, MEDICAID ==
--- NOTE | 2017-07-06 10:23 | PDRADPN ---
Radiology Procedure Note Date of Procedure: 07/06/17 Radiologist: Mat Acharya Anesthesia: Local (Specify) Pre-op Diagnosis: Chronic renal failure Post-op Diagnosis: same Indication: Surveillance of patency of A-V fistula vein Procedure: Balloon angioplasty of right subclavian vein Finding(s): 10 mm balloon plasty of recurrent stenosis of R subclavian vein. Inf/Abcess present in the surg proc area at time of surgery?: No EBL: Minimal Complications: 0
== END | disposition home or self-care (01) ==
LOC: FIMAGING 07:37
PROVIDERS: ATTEND Internal Medicine Nephrology
PROC: 03733ZZ Dilation of Right Subclavian Artery, Percutaneous Approach (ICD-10-PCS; principal; 2017-07-06)
DX: I77.1 Stricture of artery (principal); I77.0 Arteriovenous fistula, acquired; N19 Unspecified kidney failure
CPT/HCPCS: 37246; C1769; C1894; C1725; J1644; Q9967

== ENCOUNTER → 2017-08-31 | Outpatient (CLI) | payer OTHER, MEDICAID | LOC: BMCIMAGING 12:21 | PROVIDERS: ATTEND Internal Medicine | DX: J06.9 Acute upper respiratory infection, unspecified (principal); J98.01 Acute bronchospasm ==

== ENCOUNTER → 2017-10-19 | Day surgery (SDC) | payer OTHER, MEDICAID | END | disposition home or self-care (01) | LOC: FIMAGING 08:44 | PROVIDERS: ATTEND Internal Medicine Nephrology | PROC: B31HYZZ Fluoroscopy of Right Upper Extremity Arteries using Other Contrast (ICD-10-PCS; principal; 2017-10-19) | PROC: 05753ZZ Dilation of Right Subclavian Vein, Percutaneous Approach (ICD-10-PCS; principal; 2017-10-19) | DX: T82.858A Stenosis of other vascular prosthetic devices, implants and grafts, initial encounter (principal); N18.6 End stage renal disease; Z88.0 Allergy status to penicillin; Z99.2 Dependence on renal dialysis | CPT/HCPCS: 36901; 36907; C1769; C1894; C1725; J1644 ==

== ENCOUNTER 2017-11-15 13:05 | Emergency (ER) | payer OTHER, MEDICAID ==
[2017-11-15 13:17] VITALS: TEMP 98.2; O2SAT 94
--- NOTE | 2017-11-15 13:44 | EDPHY ---
H & P Time Seen by Provider: 11/15/17 13:43 HPI/ROS: Chief complaint. Fall HPI. 77-year-old female on blood thinners fell from chair this morning. She did strike her head. No loss of consciousness. This occurred at dialysis and she was sent over for head CT because of the concern being on blood thinners. No neck pain. No other injuries. Patient does not have headache or change in her vision. ROS Constitutional. no fever/chills, no weakness Eyes. no problems with vision ENT. no sore throat, no nasal drainage Cardiovascular. no chest pain Respiratory. no shortness of breath, no cough Abdominal. no abdominal pain, no nausea/vomiting, no diarrhea . no problems urinating MS. Hit left head Skin. no rash Lymph. no swollen glands Neuro. No headache Past Medical/Surgical History: Past medical history significant CVA, TIA, pacemaker, chronic renal failure on dialysis. Diabetes, congestive heart failure, cholecystectomy Social History: Single, nonsmoker, no alcohol Smoking Status: Never smoked Physical Exam: General Appearance: Alert pleasant well-developed female mild distress vital signs are stable Eyes: Pupils equal and round no pallor or injection. ENT, bump to left-sided head Respiratory: There are no retractions, lungs are clear to auscultation. Cardiovascular: Regular rate and rhythm. Gastrointestinal: Abdomen is soft and nontender, no masses, bowel sounds normal. Neurological: Awake and alert, sensory and motor exams grossly normal. Skin: Warm and dry, no rashes. Musculoskeletal: Neck is supple nontender. Extremities symmetrical, full range of motion. Psychiatric: Patient is oriented X 3, there is no agitation. Constitutional: Initial Vital Signs Temperature (C) 36.8 C 11/15/17 13:13 Heart Rate 78 11/15/17 13:13 Respiratory Rate 16 11/15/17 13:13 Blood Pressure 124/68 H 11/15/17 13:13 O2 Sat (%) 94 11/15/17 13:13 O2 Delivery Mode Room Air Allergies/Adverse Reactions: Penicillins Allergy (Severe, Verified 11/15/17 13:12) Anaphylaxis Home Medications: Medication Instructions Recorded Clopidogrel Bisulfate [Plavix (*)] 75 mg PO DAILY18 03/05/13 Losartan Potassium [Cozaar] 100 mg PO DAILY18 03/05/13 Simvastatin [Zocor 40 mg] 40 mg PO DAILY 03/05/13 amLODIPine BESYLATE [Norvasc 10 mg 5 mg PO DAILY18 03/05/13 (*)] Aspirin [Aspirin 325 mg (*)] 325 mg PO DAILY18 01/17/14 Cholecalciferol Vit D3 [Vitamin D3 1,000 units PO DAILY 01/17/14 (*)] Levothyroxine [Synthroid 112 mcg 112 mcg PO DAILY 01/17/14 (*)] Sevelamer Carbonate [Renvela] 2,400 mg PO BIDMEAL 01/17/14 Herbals/Supplements -Info Only 1 ea PO DAILY 06/01/14 Lactulose [Cephulac 20 gm/30 ml 20 gm PO DAILY PRN 06/01/14 oral soln (*)] Bimatoprost [Lumigan] 1 drop EACHEYE HS 03/06/16 Brinzolamide/Brimonidine Tart 1 drop EACHEYE BID 03/06/16 [Simbrinza 1%-0.2% Eye Drops] Insulin Detemir [Levemir] 16 units SC AUGUSTIN@08 03/06/16 Insulin Detemir [Levemir] 20 units SC MOTUWETHFRSA@08 03/06/16 C/E/Zn/Cu/OM3/DHA/EPA/LUT/ZEAX 2 each PO DAILY 04/22/17 [Preservision Areds 2 Softgel] Lansoprazole [Prevacid] 30 mg PO BID 04/22/17 Atenolol [Tenormin 50 mg (*)] 50 mg PO DAILY PRN 06/13/17 Folic Acid/Vit B Complex and C 0.8 mg PO DAILY@18 06/13/17 [Renal Vitamin Tablet] Sevelamer Carbonate [Renvela] 1,600 - 2,400 mg PO DAILY@12 06/13/17 Refresh Tears 1 drop EACHEYE PRN PRN 06/14/17 Medical Decision Making - Diagnostics Imaging Results: Imaging Impressions Head CT 11/15/17 13:54 Impression: 1. No evidence of acute ischemia or intracranial hemorrhage. 2. Multifocal encephalomalacia consistent with remote infarction. Not significantly changed since prior imaging. Findings and recommendations discussed with CHANTAL PONCE at 1445 hour, 2017. Noncontrast head CT reviewed by me and discussed with Dr. Melgar shows no evidence of intracranial bleeding ED Course/Re-evaluation: Re-evaluation 2:45 p.m. Patient is stable. The patient and her caregivers and I discussed imaging study results, treatment plan including criteria for return importance of follow-up and further evaluation. They expressed understanding and agreement Differential Diagnosis: I considered concussion, skull fracture, intracranial bleeding, head contusion Departure - Departure Disposition: Home, Routine, Self-Care Clinical Impression: Head contusion Qualifiers: Encounter type: initial encounter Contusion of head detail: scalp Qualified Code(s): S00.03XA - Contusion of scalp, initial encounter Condition: Good Instructions: Contusion in Adults (ED) Additional Instructions: Ice to sore area of head today. Return for altered mental status, vomiting, worsening headache. May continue regular prescribed medications. Referrals: Octavio Heath MD [Primary Care Provider] - 2-3 days, if not improved
[2017-11-15 15:05] VITALS: BP 112/62; PULSE 63; RESP 18
== END 2017-11-15 15:02 | disposition home or self-care (01) ==
DX: S00.03XA Contusion of scalp, initial encounter (principal); E11.9 Type 2 diabetes mellitus without complications; N18.6 End stage renal disease; Z79.4 Long term (current) use of insulin; Z79.82 Long term (current) use of aspirin; Z99.2 Dependence on renal dialysis; Z86.73 Personal history of transient ischemic attack (TIA), and cerebral infarction without residual deficits; W07.XXXA Fall from chair, initial encounter; Y99.8 Other external cause status

== ENCOUNTER 2017-12-12 19:56 | Inpatient (IN) | payer OTHER, MEDICAID ==
[~2017-12-12 19:56] MED LIST changes: -IOPAMIDOL (ISOVUE-300) 100 ML BTL ONE; +LIDOCAINE 1% *Not for Epidural 20 ML MDV ONE
[2017-12-12 20:06] LABS: PLATELET COUNT 204 10^3/uL (150-400)
[2017-12-12] MEDS ORDERED: IOPAMIDOL (ISOVUE 370) 100 ML BTL IV ONE (20:12)
[2017-12-12 20:21] LABS: INR 1.12 (0.83-1.16); PROTIME(PATIENT) 14.6 SEC (12.0-15.0)
--- NOTE | 2017-12-12 20:23 | EDPHY ---
H & P Time Seen by Provider: 12/12/17 19:58 HPI/ROS: HPI Catatonia. 77-year-old female by ambulance, stroke alert called, 7:20 p.m., sudden onset receptive and expressive aphasia and catatonia. Patient has history of multiple strokes in the past. Usually talks but with slurred speech and ambulates according to family present in the room. She is a DNR, DNI. ROS: Unable to obtain. Past medical history: Multiple CVAs, TIA, pacemaker, chronic renal failure with dialysis Wednesday and Wednesday, fistula in right upper extremity, type 2 diabetes, cholecystectomy, CHF. Social history: Here with family members and . Physical Exam: General Appearance: Eyes are open. Stairs to the left, does not track, no response to verbal commands or questions. This patient generally appears well- hydrated and well-nourished. Head: Normocephalic atraumatic Eyes: Pupils equal and round, 3-2 mm bilaterally, no pallor or injection. No lid edema, erythema or injection. ENT, Mouth: Mucous membranes are moist. The pharyngeal tissues are unremarkable. No edema or swelling. No asymmetry suggestive of abscess. No erythema or exudates. No tongue lacerations or abrasions. Respiratory: There are no retractions, lungs are clear to auscultation anteriorly with good air movement bilaterally. Cardiovascular: Regular rate and rhythm. No murmur. Gastrointestinal: Abdomen is soft on palpation. Neurological: Moving lower extremities non purposefully, moves left upper extremity, no movement of right upper extremity. Receptive and expressive aphasia. Skin: Warm and dry, no rashes. Musculoskeletal: Neck is supple and nontender. Extremities are symmetrical. All joints range without pain or impingement. Psychiatric: No agitation. No depression. Database: EKG: EKG time is 9:00 p.m.; EKG shows a wide complex ventricular paced rhythm with appropriate discordance. Interpreted by me. Imaging: CT head without contrast: Multiple old infarcts. Results discussed with staff radiologist Dr. Riccardo Caldera. CT angiogram of head neck: This study was compared to a previous angiogram from May of 2017. It demonstrates complete occlusion now the right ICA but with good collateral circulation. 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 Otherwise no changes from 2017. 2017 study demonstrated 50-60% occlusion of left ICA and thread like flow of right ICA. Results were discussed with staff radiologist Dr. Riccardo Caldera. Repeat CT head without contrast status post tPA: No obvious hemorrhage. Results discussed with staff radiologist Dr. Riccardo Caldera. Procedures: Emergency department course: Stroke alert called on arrival. After initial assessment patient was sent for initial CT head without contrast. [facility] paged. I discussed results of CT head without contrast with on-call radiologist Dr. Riccardo Caldera. I then sent the patient back to CT suite for angiogram at 8:15 p.m.. Still awaiting call back from [facility]. Spoke to [facility], Dr. Morales at 8:25 p.m.. He will be online to evaluate the patient shortly. 8:35 p.m., [facility] evaluating the patient. He is advising tPA. This is being prepared. Family members are working on final consent. 9:25 p.m., patient is currently receiving tPA drip. No change in neurologic status. Hospitalist paged for admission of this patient to the ICU. 9:40 p.m., I spoke with on-call hospitalist Dr. Morin. Case discussed in detail with him. He accepts this patient for admission. Patient admitted to the ICU. No significant change in her neurologic status. Differential Diagnosis: The differential diagnosis on this patient includes but is not limited to thrombotic CVA. Hemorrhagic CVA unlikely. This represents a partial list of diagnoses considered. These considerations are based on history, physical exam , past history, reassessment and diagnostic testing. Smoking Status: Never smoked Constitutional: Initial Vital Signs Temperature (C) 36.7 C 12/12/17 19:59 Heart Rate 79 12/12/17 19:59 Respiratory Rate 18 12/12/17 19:59 Blood Pressure 169/80 H 12/12/17 19:59 O2 Sat (%) 97 12/12/17 19:59 O2 Delivery Mode Room Air O2 (L/minute) 2 Allergies/Adverse Reactions: Penicillins Allergy (Severe, Verified 12/12/17 20:14) Anaphylaxis Home Medications: Medication Instructions Recorded Clopidogrel Bisulfate [Plavix (*)] 75 mg PO DAILY18 03/05/13 Losartan Potassium [Cozaar] 100 mg PO DAILY18 03/05/13 Simvastatin [Zocor 40 mg] 40 mg PO HS 03/05/13 amLODIPine BESYLATE [Norvasc 10 mg 5 mg PO DAILY18 03/05/13 (*)] Aspirin [Aspirin 325 mg (*)] 325 mg PO DAILY18 01/17/14 Cholecalciferol Vit D3 [Vitamin D3 1,000 units PO DAILY 01/17/14 (*)] Levothyroxine [Synthroid 112 mcg 112 mcg PO DAILY 01/17/14 (*)] Sevelamer Carbonate [Renvela] 1,600 mg PO BIDMEAL 01/17/14 Herbals/Supplements -Info Only 1 ea PO DAILY 06/01/14 Bimatoprost [Lumigan] 1 drop EACHEYE HS 03/06/16 Brinzolamide/Brimonidine Tart 1 drop EACHEYE BID 03/06/16 [Simbrinza 1%-0.2% Eye Drops] Insulin Detemir [Levemir] 16 units SC AUGUSTIN@08 03/06/16 Insulin Detemir [Levemir] 20 units SC MOTUWETHFRSA@08 03/06/16 C/E/Zn/Cu/OM3/DHA/EPA/LUT/ZEAX 2 each PO DAILY 04/22/17 [Preservision Areds 2 Softgel] Lansoprazole [Prevacid] 30 mg PO BID 04/22/17 Atenolol [Tenormin 50 mg (*)] 50 mg PO DAILY PRN 06/13/17 Folic Acid/Vit B Complex and C 0.8 mg PO DAILY@18 06/13/17 [Renal Vitamin Tablet] Sevelamer Carbonate [Renvela] 1,600 mg PO DAILY@12 06/13/17 Refresh Tears 1 drop EACHEYE PRN PRN 06/14/17 Medical Decision Making - Diagnostics Imaging Results: Imaging Impressions Head CT 12/12/17 19:59 Impression: 1. No definite acute intracranial findings. 2. Extensive multifocal encephalomalacia from previous infarcts. Findings discussed with Sara Larkin MD on December 12, 2017 at 2008 hours. Neck CTA 12/12/17 19:59 Impression: 1. No definite acute findings with age-indeterminate occlusion of the string- like right internal carotid artery proximal to the skull base, previously equivocally patent through the skull base. If symptoms persist and clinical suspicion warrants, consider MRI. 2. Increased approximately 70% focal stenosis at the origin of the left internal carotid artery. 3. Cross-filling of the right intracranial circulation via the anterior and posterior communicating arteries. 4. Grossly stable moderate stenosis at the distal aspect of the central brachiocephalic vein stent. 5. Multiple stable findings, as above. Stenoses are calculated using [place] Symptomatic Carotid Endarterectomy Trial (NASCET) criteria. Findings discussed with Sara Larkin MD on December 12, 2017 at 2031 hours. Chest X-Ray 12/12/17 20:00 Impression: Persistent diffuse interstitial prominence with cardiomegaly and probable small effusions suggesting CHF. Critical Care Time: I spent a total of 37 minutes of critical care time in obtaining history, performing a physical exam, bedside monitoring of interventions, collecting and interpreting tests and discussion with consultants but not including time spent performing procedures. - Data Points Laboratory Results: Laboratory Results 12/12/17 19:50 12/12/17 19:50 12/12/17 12/12/17 12/12/17 20:04 19:50 19:50 WBC RBC Hgb POC Hgb 16.7 gm/dL H gm/dL (12.6-16.3) Hct POC Hct 49 % H % (38-47) MCV MCH MCHC RDW Plt Count MPV Neut % (Auto) Lymph % (Auto) [place] % (Auto) Eos % (Auto) Baso % (Auto) Nucleat RBC Rel Count Absolute Neuts (auto) Absolute Lymphs (auto) Absolute Monos (auto) Absolute Eos (auto) Absolute Basos (auto) Absolute Nucleated RBC Immature Gran % Immature Gran # PT 14.6 SEC SEC (12.0-15.0) INR 1.12 (0.83-1.16) APTT 32.5 SEC SEC (23.0-38.0) POC Sodium 131 mEq/L L mEq/L (135-145) Sodium 133 mEq/L L mEq/L (135-145) POC Potassium 5.2 mEq/L H mEq/L (3.3-5.0) Potassium 5.6 mEq/L H mEq/L (3.5-5.2) POC Chloride 96 mEq/L L mEq/L (97-110) Chloride 90 mEq/L L mEq/L (97-110) Carbon Dioxide 23 mEq/l mEq/l (22-31) Anion Gap 20 mEq/L H mEq/L (8-16) POC BUN 74 mg/dL H mg/dL (7-23) BUN 82 mg/dL H mg/dL (7-23) Creatinine 8.4 mg/dL H* mg/dL (0.6-1.0) POC Creatinine 8.2 mg/dL H* mg/dL (0.6-1.0) Estimated GFR 5 Glucose 152 mg/dL H mg/dL (70-100) POC Glucose 168 mg/dL H mg/dL (70-100) Calcium 9.3 mg/dL mg/dL (8.5-10.4) Troponin I 0.015 ng/mL ng/mL (0.000-0.034) 12/12/17 19:50 WBC 8.26 10^3/uL 10^3/uL (3.80-9.50) RBC 4.49 10^6/uL 10^6/uL (4.18-5.33) Hgb 14.4 g/dL g/dL (12.6-16.3) POC Hgb Hct 44.5 % % (38.0-47.0) POC Hct MCV 99.1 fL fL (81.5-99.8) MCH 32.1 pg pg (27.9-34.1) MCHC 32.4 g/dL g/dL (32.4-36.7) RDW 16.5 % H % (11.5-15.2) Plt Count 204 10^3/uL 10^3/uL (150-400) MPV 10.4 fL fL (8.7-11.7) Neut % (Auto) 64.8 % % (39.3-74.2) Lymph % (Auto) 12.5 % L % (15.0-45.0) [place] % (Auto) 7.0 % % (4.5-13.0) Eos % (Auto) 14.0 % H % (0.6-7.6) Baso % (Auto) 1.3 % % (0.3-1.7) Nucleat RBC Rel Count 0.0 % % (0.0-0.2) Absolute Neuts (auto) 5.35 10^3/uL 10^3/uL (1.70-6.50) Absolute Lymphs (auto) 1.03 10^3/uL 10^3/uL (1.00-3.00) Absolute Monos (auto) 0.58 10^3/uL 10^3/uL (0.30-0.80) Absolute Eos (auto) 1.16 10^3/uL H 10^3/uL (0.03-0.40) Absolute Basos (auto) 0.11 10^3/uL H 10^3/uL (0.02-0.10) Absolute Nucleated RBC 0.00 10^3/uL 10^3/uL (0-0.01) Immature Gran % 0.4 % % (0.0-1.1) Immature Gran # 0.03 10^3/uL 10^3/uL (0.00-0.10) PT INR APTT POC Sodium Sodium POC Potassium Potassium POC Chloride Chloride Carbon Dioxide Anion Gap POC BUN BUN Creatinine POC Creatinine Estimated GFR Glucose POC Glucose Calcium Troponin I Medications Given: Discontinued Medications Alteplase, Recombinant (Activase) 5.427 mg 0.09 mg/kg (5.427 mg) IV ONCE ONE PRN Reason: Protocol Stop: 12/12/17 20:53 Last Admin: 12/12/17 20:44 Dose: 5.427 mg Alteplase, Recombinant (Activase) 48.843 mg 0.81 mg/kg (48.843 mg) IV ONCE ONE PRN Reason: Protocol Stop: 12/12/17 20:53 Last Admin: 12/12/17 20:45 Dose: 48.843 mg Sodium Chloride (Ns) 50 mls @ 0 mls/hr IV EDNOW ONE PRN Reason: Per Protocol Stop: 12/12/17 20:53 Last Admin: 12/12/17 20:56 Dose: 50 mls Point of Care Test Results: 12/12/17 20:04 POC Sodium 131 L POC Potassium 5.2 H POC Chloride 96 L POC BUN 74 H POC Creatinine 8.2 H* POC Glucose 168 H Departure - Departure Disposition: [facility] Inpatient Acute Clinical Impression: CVA (cerebral vascular accident)
[2017-12-12] MEDS ORDERED: ALTEPLASE 100 MG/100 ML VIAL IV ONE ×2 (20:35→20:52)
--- NOTE | 2017-12-12 20:36 | PDCONSULT ---
Seat Cover Installer Note: [place] Note Demographics Consult Type: Acute Stroke First Name: Clif Last Name: Date of : 1940 Age: 77 Gender: Female Time of initial page (): 12/12/2017 20:21 Time of return call (): 12/12/2017 20:21 Time Ready to Initiate Telemed Consult (): 12/12/2017 20:21 HPI Additional History (Free Text): 77yo woman who had sudden aphasia starting at 720PM. She then became catatonic. She is moving left arm and legs bilaterally. She is not moving the right arm. She has baseline slurred speech from prior strokes, but is ambulatory on her own. Possible tPA candidate: Not on warfarin or NOACs, No ICH history, No recent major surgery, No known active major internal bleeding, No known blood disorders [facility] Past Medical History: Stroke, Transient Ischemic Attack, ESRD on HD Social History: DNR Medications: aspirin, Plavix Exam Vitals: vital signs reviewed SBP: 162 DBP: 68 NIHSS Time (): 12/12/2017 20:29 LOC 1a: 0 = Alert; keenly responsive LOC 1b: 0 = Answers both questions correctly LOC Commands: 0 = Performs both tasks correctly Best Gaze: 2 = Forced deviation, or total gaze paresis not overcome by the oculocephalic maneuver Visual: 2 = Complete hemianopia Facial Palsy: 1 = Minor paralysis (flattened nasolabial fold, asymmetry on smiling) Motor Arm L: 0 = No drift; limb holds 90 (or 45) degrees for full 10 seconds Motor Arm R: 4 = No movement Motor Leg L: 0 = No drift; leg holds 30-degree position for full 5 seconds Motor Leg R: 0 = No drift; leg holds 30-degree position for full 5 seconds Limb Ataxia: 0 = Absent Sensory: 0 = Normal; no sensory loss Best Language: 3 = Mute, global aphasia; no usable speech or auditory comprehension Dysarthria: 2 = Severe dysarthria; patient's speech is so slurred as to be unintelligible Extinction + Inattention: 0 = No abnormality NIHSS: [address]: no bleed, multiple old strokes Assessment Assessment: Acute Ischemic Stroke Plan Lytic/Intervention: IV tPA Time IV tPA Recommended (): 12/12/2017 20:30 Blood Pressure Managment: Labetolol Target Blood Pressure: SBP < 180 and DBP < 100 Labs: Comprehensive metabolic panel, ESR, HgbA1c, Lipid Panel, UDS Imaging: CTA Head and Neck STAT, Please call me back with results NATI if there are signs of occlusion or dissection, MRI brain without Diagnostic test: echocardiogram without bubble Therapy/Eval: NPO until cleared by swallow evaluation, PT/OT, Speech/Swallow therapy consult tPA Administration Recommendations: I have reviewed the risks/benefits of tPA with family and patient. They understand that there is a potential of life threatening hemorrhagic complication from tPA, but feel that benefits outweigh risks and want to proceed with administration of tPA, BP goal< 180/100 for 24hrs post tPA administration, Use Labetolol 10-20mg IV prn or Nicardipine gtt to maintain BP parameters, No antiplatelets or anticoagulants for next 24 hrs unless indicated for emergent IA procedure or other life threatening situation, ICU admission, Call back if there is any decline in neurological condition Other: LDL goal less than 70, telemetry monitoring, I have discussed my recommendations with the referring provider Disposition: transfer to ICU Logistics Telemedicine: Interactive 2 way audio and visual telecommunication technology was utilized during this visit. Provider Location: [place]
[2017-12-12] MEDS ORDERED: NS 50 ML IV ONE (20:52)
[2017-12-12] MEDS ORDERED: ALTEPLASE 1 MG/ML SYR IV ONE (20:52)
[2017-12-12] MEDS ORDERED: BIMATOPROST 0.01% 2.5 ML OPHT.BTL EACHEYE SCH (21:00)
--- NOTE | 2017-12-12 21:01 | CPEKG ---
Heart Rate: 61 RR Interval: 984 P-R Interval: 276 QRSD Interval: 170 QT Interval: 552 QTC Interval: 556 P [place]: 0 QRS [place]: -67 T Wave [place]: 136 EKG Severity - ABNORMAL ECG - EKG Impression: VENTRICULAR-PACED RHYTHM Electronically Signed By: Sara Larkin 12-Dec-2017 23:15:05
[2017-12-12] MEDS ORDERED: ACETAMINOPHEN 650 MG SUPP PR PRN (21:50)
[2017-12-12] MEDS ORDERED: ONDANSETRON 4 MG/2 ML VIAL IVP PRN (21:50)
[2017-12-12] MEDS ORDERED: LABETALOL HCL 5 MG/ML 20 ML MDV IVP PRN (21:53)
[2017-12-12] MEDS ORDERED: D5W 1/2 NS 1,000 ML IV SCH (22:00)
[2017-12-12] MEDS ORDERED: TEARS/DEXTRAN 70/HYPROMELLOSE 15 ML OPHT.BTL EACHEYE PRN (22:05)
[2017-12-12] MEDS ORDERED: CARBOXYMETHYLCELLULOSE 0.5% 0.4 ML DROPERETTE EACHEYE PRN (22:05)
--- NOTE | 2017-12-12 22:36 | PDGENHP ---
History and Physical - Chief Complaint ACUTE CATATONIA - History of Present Illness 77-year-old female presenting with acute catatonia after her caretakers noted more extreme receptive and expressive aphasia with onset at 7:20 p.m. On the day of presentation. Thereafter they noted that she was not following commands and appeared to be catatonic, bring her to the emergency department were was noted that she had dense right upper extremity paresis. Her caretakers report that prior to onset of symptoms, the patient had otherwise been in her usual state of health, which is a shuffling gait, aphasic, but interactive with caretakers and family members. They report that she had not recently been complaining of any infectious symptoms. They report that she has gone to her hemodialysis as scheduled, most recently on Wednesday. In the emergency department she was noted to be moving her bilateral lower extremities and left upper extremity, but not following commands, [facility] determined that tPA was indicated. History Information - Allergies/Home Medication List Allergies/Adverse Reactions: Penicillins Allergy (Severe, Verified 12/12/17 20:14) Anaphylaxis Home Medications: Clopidogrel Bisulfate [Plavix (*)] 75 mg PO DAILY18 03/05/13 [Last Taken ] Losartan Potassium [Cozaar] 100 mg PO DAILY18 03/05/13 [Last Taken 12/11/17] Simvastatin [Zocor 40 mg] 40 mg PO HS 03/05/13 [Last Taken 12/11/17] amLODIPine BESYLATE [Norvasc 10 mg (*)] 5 mg PO DAILY18 03/05/13 [Last Taken ] Aspirin [Aspirin 325 mg (*)] 325 mg PO DAILY18 01/17/14 [Last Taken 12/11/17] Cholecalciferol Vit D3 [Vitamin D3 (*)] 1,000 units PO DAILY 01/17/14 [Last Taken 12/12/17] Levothyroxine [Synthroid 112 mcg (*)] 112 mcg PO DAILY 01/17/14 [Last Taken ] Sevelamer Carbonate [Renvela] 1,600 mg PO BIDMEAL 01/17/14 [Last Taken 12/12/17] Herbals/Supplements -Info Only 1 ea PO DAILY 06/01/14 [Last Taken 04/22/17] Bimatoprost [Lumigan] 1 drop EACHEYE HS 03/06/16 [Last Taken 12/11/17] Brinzolamide/Brimonidine Tart [Simbrinza 1%-0.2% Eye Drops] 1 drop EACHEYE BID 03/06/16 [Last Taken 12/12/17] Insulin Detemir [Levemir] 16 units SC AUGUSTIN@03/06/16 [Last Taken 12/12/17] Insulin Detemir [Levemir] 20 units SC MOTUWETHFRSA@03/06/16 [Last Taken 12/11] C/E/Zn/Cu/OM3/DHA/EPA/LUT/ZEAX [Preservision Areds 2 Softgel] 2 each PO DAILY [Last Taken 12/12/17] Lansoprazole [Prevacid] 30 mg PO BID 04/22/17 [Last Taken 12/12/17] Atenolol [Tenormin 50 mg (*)] 50 mg PO DAILY PRN 06/13/17 [Last Taken Unknown] Folic Acid/Vit B Complex and C [Renal Vitamin Tablet] 0.8 mg PO DAILY@18 [Last Taken 12/11/17] Sevelamer Carbonate [Renvela] 1,600 mg PO DAILY@12 06/13/17 [Last Taken 12/12/17 ] Refresh Tears 1 drop EACHEYE PRN PRN 06/14/17 [Last Taken Unknown] I have personally reviewed and updated: family history, medical history, social history, surgical history - Past Medical History atrial fibrillation (Paroxysmal), CHF (Chronic diastolic), CVA (X3, 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 Recurrent bleeding AV fistula with restenoses, most recently angiogram and a couple weeks ago. Recurrence of previous CVAs in the setting of dense encephalomalacia - Surgical History Additional surgical history: Permanent pacemaker. Subclavian angioplasty September of 2017, with subsequent AV fistula angioplasty. Cholecystectomy. Gastrostomy tube, removed - Family History Additional family history: with upper respiratory viral infection - Social History Smoking Status: Never smoked Alcohol Use: None Drug Use: None Additional social history: Patient originally from [facility], has been in [facility] for 15 years Review of Systems Review of Systems: ROS: 10pt was reviewed & negative except for what was stated in HPI & below Neurological: Reports: other (Aphasic, catatonia) Physical Exam Physical Exam: Temp Pulse Resp BP Pulse Ox 36.7 C 60 20 171/64 H 93 12/12/17 22:15 12/12/17 22:15 12/12/17 22:15 12/12/17 22:15 12/12/17 22:15 O2 (L/minute) 2 Constitutional: no apparent distress, chronically ill appearing, uncomfortable Eyes: other ([place] sclera) Ears, Nose, Mouth, Throat: other (Drooling) Cardiovascular: regular rate and rhythym, systolic murmur (106 sternum and apex) , edema (Trace bilateral lower extremity), No irregularly irregular, No tachycardia Respiratory: no respiratory distress, no rales or rhonchi, clear to auscultation Gastrointestinal: normoactive bowel sounds, soft, non-tender abdomen, no palpable masses, No distension Skin: other (No rash or erythema over the right AV fistula site) Neurologic: facial droop (R), other (moving bilat LE and LUE spontaneously but not following commands; only moving proximal RUE but distal ext remains limp; dense expressive/receptive aphasia) Lab Data & Imaging Review 12/12/17 19:50 12/12/17 19:50 WBC 8.26 10^3/uL (3.80-9.50) 12/12/17 19:50 RBC 4.49 10^6/uL (4.18-5.33) 12/12/17 19:50 Hgb 14.4 g/dL (12.6-16.3) 12/12/17 19:50 POC Hgb 16.7 gm/dL (12.6-16.3) H 12/12/17 20:04 Hct 44.5 % (38.0-47.0) 12/12/17 19:50 POC Hct 49 % (38-47) H 12/12/17 20:04 MCV 99.1 fL (81.5-99.8) 12/12/17 19:50 MCH 32.1 pg (27.9-34.1) 12/12/17 19:50 MCHC 32.4 g/dL (32.4-36.7) 12/12/17 19:50 RDW 16.5 % (11.5-15.2) H 12/12/17 19:50 Plt Count 204 10^3/uL (150-400) 12/12/17 19:50 MPV 10.4 fL (8.7-11.7) 12/12/17 19:50 Neut % (Auto) 64.8 % (39.3-74.2) 12/12/17 19:50 Lymph % (Auto) 12.5 % (15.0-45.0) L 12/12/17 19:50 [place] % (Auto) 7.0 % (4.5-13.0) 12/12/17 19:50 Eos % (Auto) 14.0 % (0.6-7.6) H 12/12/17 19:50 Baso % (Auto) 1.3 % (0.3-1.7) 12/12/17 19:50 Nucleat RBC Rel Count 0.0 % (0.0-0.2) 12/12/17 19:50 Absolute Neuts (auto) 5.35 10^3/uL (1.70-6.50) 12/12/17 19:50 Absolute Lymphs (auto) 1.03 10^3/uL (1.00-3.00) 12/12/17 19:50 Absolute Monos (auto) 0.58 10^3/uL (0.30-0.80) 12/12/17 19:50 Absolute Eos (auto) 1.16 10^3/uL (0.03-0.40) H 12/12/17 19:50 Absolute Basos (auto) 0.11 10^3/uL (0.02-0.10) H 12/12/17 19:50 Absolute Nucleated RBC 0.00 10^3/uL (0-0.01) 12/12/17 19:50 Immature Gran % 0.4 % (0.0-1.1) 12/12/17 19:50 Immature Gran # 0.03 10^3/uL (0.00-0.10) 12/12/17 19:50 PT 14.6 SEC (12.0-15.0) 12/12/17 19:50 INR 1.12 (0.83-1.16) 12/12/17 19:50 APTT 32.5 SEC (23.0-38.0) 12/12/17 19:50 POC Sodium 131 mEq/L (135-145) L 12/12/17 20:04 Sodium 133 mEq/L (135-145) L 12/12/17 19:50 POC Potassium 5.2 mEq/L (3.3-5.0) H 12/12/17 20:04 Potassium 5.6 mEq/L (3.5-5.2) H 12/12/17 19:50 POC Chloride 96 mEq/L (97-110) L 12/12/17 20:04 Chloride 90 mEq/L (97-110) L 12/12/17 19:50 Carbon Dioxide 23 mEq/l (22-31) 12/12/17 19:50 Anion Gap 20 mEq/L (8-16) H 12/12/17 19:50 POC BUN 74 mg/dL (7-23) H 12/12/17 20:04 BUN 82 mg/dL (7-23) H 12/12/17 19:50 Creatinine 8.4 mg/dL (0.6-1.0) H* 12/12/17 19:50 POC Creatinine 8.2 mg/dL (0.6-1.0) H* 12/12/17 20:04 Estimated GFR 5 12/12/17 19:50 Glucose 152 mg/dL (70-100) H 12/12/17 19:50 POC Glucose 168 mg/dL (70-100) H 12/12/17 20:04 Calcium 9.3 mg/dL (8.5-10.4) 12/12/17 19:50 Troponin I 0.015 ng/mL (0.000-0.034) 12/12/17 19:50 Visualized and Interpreted Chest x-ray results: Yes Chest X-Ray results: other (interstitial markers visible distally) Visualized and Interpreted imaging results: Yes Interpretation: HCT w/ old infarcts and encephalomalacia Visualized and Interpreted EKG results: Yes EKG Interpretation: Positive for: other (V-paced) Assessment & Plan Assessment: 77-year-old female presents with acute worsening aphasia and paresis, concerning for acute CVA Plan: 1. Acute CVA. 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 Sara Larkin, he has reported to me that Dr. Morales has requested tPA from [facility], tPA given -repeating head CT -discussed with patient's ICU nurse, the patient's neurologic exam will be very challenging to interpret overnight but we should consider spontaneous movement of bilateral lower extremities and left upper extremity as well as some motion in her left mouth to be her current neurologic capabilities and right upper extremity distal paresis as well as right facial palsy to be her current deficits -IV labetalol for systolic blood pressure greater than 180, Cardene drip if not responding -repeat head CT in 24 hr, sooner if neurologic exam changes -ongoing Neurology consultation -hold her current aspirin and Plavix -if patient begins demonstrating any evidence of seizure-like activity, recommend loading her with 500 mg of IV Keppra and considering treatment to continuous EEG monitoring facility, notably [facility] 2. End-stage renal disease. Reviewed outside records, Neurology consultation from 06/14/[address] Robert Monzon suggested that patient's neurologic symptoms on that presentation which consisted of right hemiparesis may have been secondary to recrudence of prior CVA in the setting of end-stage renal disease and electrolyte disturbance -will discuss with Nephrology, recommend optimizing electrolyte status 3. 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 Patient took her morning long-acting insulin, she will be at risk for hypoglycemia tonight given her absence of oral intake -will monitor glucose Q 4, no sliding scale medication given risk of hypoglycemia -will maintain on D5 half normal overnight while she is NPO -recommend dosing with half amp of D 50 if her glucose level gets to be less than 100 to avoid complicating her current neurologic symptoms with hypoglycemic once 4. Chronic diastolic congestive heart failure. Chest x-ray with visible interstitial markings but no significant physical exam evidence of volume overload, monitor while on IV fluids 5. Atrial fibrillation. Paroxysmal, continue home medications once reconciled Diet. NPO, swallow eval in a.m. Code status. Do not resuscitate/do not intubate, her is her POA Prophylaxis. SCDs, hold pharm given tPA Disposition. Anticipated discharge is uncertain, anticipated length stay is greater than 48 hr for reasonable medical necessity including acute CVA requiring tPA and ICU admission. 50 min of critical care time spent with this patient, at bedside in the emergency department, coordinating care with Dr. Sara Larkin, Dr. Danielle, and the patient's ICU nurse, specifically addressing patient's acute CVA which renders her critically ill at this juncture with high risk of morbidity and/or mortality.
[2017-12-12] MEDS ORDERED: niCARdipine/NACL 200 ML IV SCH (23:00)
[2017-12-13] MEDS: EYE EACHEYE SCH ×4 (00:27→22:44)
[2017-12-13] MEDS: BRIMONIDINE EACHEYE SCH ×4 (00:27→22:44)
[2017-12-13] MEDS: BRINZOLAMIDE EACHEYE SCH ×4 (00:27→22:44)
[2017-12-13 04:30] LABS: PLATELET COUNT 184 10^3/uL (150-400)
--- NOTE | 2017-12-13 07:38 | PDMN ---
Medical Necessity Medical necessity: Pt meets IP criteria per MD; est los >2 mn for eval/tx of acute CVA w/catatonia, worsening aphasia & RUE paresis; pt critically ill at this juncture w/high risk of morbidity &/or mortality; admit to ICU for further workup/monitoring, Neuro consult, IVFs & therapies; hx AFIB, CHF, CVA, diabetes , ESRD on hemodialysis w/AV fistula & HTN; per H&P & order 12/12/17
--- NOTE | 2017-12-13 09:44 | ECHO ---
[email or web address] [address] [address] Main: [phone] Fax: Transthoracic Echocardiogram Name: ZURDO AREVALO MR#: [id number] Study Date: 12/13/2017 Study Time: 08:13 AM Date of : 1940 Age: 77 year(s) Height: 152.4 cm (60 in.) Weight: 59.87 kg (132 lb.) BSA: 1.56 m2 Gender: Female Examination: Echo Indication: Ischemic stroke, pacer Image Quality: Contrast: Requested by: Romeo Morin BP: 140 mmHg/62 mmHg Heart Rate: Rhythm: Indication: Ischemic stroke, pacer Procedure Staff Unit Director: Ying Woodard EMILY Reading Physician: Mat Silva MD Requesting Provider: Conclusions: Normal size left ventricle. No LV hypertrophy. Normal global systolic LV function. The ejection fraction is estimated to be 50-55 %. Diastolic dysfunction is present. . LV septal motion is consistent with conduction abnormality.. There is a ICD/Pacer wire noted in the right ventricle. The left atrium is mildly to moderately dilated. An agitated saline study was performed and was negative for intracardiac shunting. The right atrium is mildly dilated. Mild mitral annular calcification. Mild to moderate mitral regurgitation. The aortic valve is normal in appearance and function. There is no aortic valve regurgitation. The tricuspid valve is normal in appearance and function. Moderate to severe tricuspid valve regurgitation. RVSP is 50mmHG.. The aorta is normal. Measurements: Chambers Valvular Assessment AV/MV Valvular Assessment TV/PV Normal Normal Normal Name Value Range Name Value Range Name Value Range Ao Kim (MM): 2.7 cm (2.2 cm-3.7 AV Vmax: 1.27 m/s (1 m/s-1.7 TR Vmax: 3.35 mm/s ( - ) cm) m/s) TR PGmax: 45 mmHg ( - ) IVSd (2D): 0.9 cm (0.6 cm-1.1 AV maxP mmHg ( - ) syst. PAP: 50 mmHg ( - ) cm) AV meanP mmHg ( - ) LVDd (2D): 4.5 cm (3.9 cm-5.3 MV E Vmax: 1.36 m/s ( - ) cm) MV A Vmax: 0.43 m/s ( - ) Patient: ZURDO AREVALO Study Date: 12/13/2017 Page 1 of 2 08:13 AM LVDs (2D): 3.5 cm (2.1 cm-4 MV E/A: 3.16 ( - ) cm) LVPWd (2D): 1.0 cm ( - ) LVOTd 1.8 cm 1.8 cm mm LVEF (2D): 46 (>=54 %) EF Range: 50-55 % Continued Measurements: Chambers Valvular Assessment AV/MV Valvular Assessment TV/PV Name Value Name Value Name Value LADs: 4.2 cm MV E/E' Septal: 39.70 CVP (est.): 5 mmHg LADs Lon.0 cm MV E/E' Lateral: 27.10 LA Area: 23.9 cm2 MR Vena Contracta: 0.3 cm Findings: Left Ventricle: Normal size left ventricle. No LV hypertrophy. Normal global systolic LV function. The ejection fraction is estimated to be 50-55 %. Diastolic dysfunction is present. . LV septal motion is consistent with conduction abnormality.. Right Ventricle: Normal size right ventricle. There is a ICD/Pacer wire noted in the right ventricle. Left Atrium: The left atrium is mildly to moderately dilated. An agitated saline study was performed and was negative for intracardiac shunting. Right Atrium: The right atrium is mildly dilated. Mitral Valve: Mild mitral annular calcification. Mild to moderate mitral regurgitation. Aortic Valve: The aortic valve is normal in appearance and function. There is no aortic valve regurgitation. Tricuspid Valve: The tricuspid valve is normal in appearance and function. Moderate to severe tricuspid valve regurgitation. RVSP is 50mmHG.. Pulmonic Valve: The pulmonic valve is normal in appearance and function. Mild pulmonic valve regurgitation is noted. Aorta: The aorta is normal. Pericardium: No pericardial effusion. (No Signature Object) Patient: ZURDO AREVALO Study Date: 12/13/2017 Page 2 of 2 08:13 AM [id number]
--- NOTE | 2017-12-13 09:47 | ASMTCMCOM ---
CM Note CM Note Notes: 77yr old female admitted for Acute CVA, ESRD, DM-2, CHF, Afib. She has a Hx of CVA x 3, ESRD, DM-2, CHF, Afib, HTN, Pacer, Glaucoma. Patient experiencing worsening aphasia R sided weakness. Tx TPA. CM to follow for discharge needs. Date Signed: 12/13/2017 09:47 AM Electronically Signed By:Miroslava Wallace LCSW
[2017-12-13] MEDS ORDERED: D50W 25 GM/50 ML SYR IVP PRN (10:19)
[2017-12-13] MEDS ORDERED: SODIUM BICARBONATE 50 MEQ/50 ML SYR IVP ONE (10:23)
[2017-12-13] MEDS: INSULIN REGULAR HUMAN 100 UNIT/ML UNIT SC SCH ×3 (10:54→23:31)
--- NOTE | 2017-12-13 15:24 | GCON ---
[f rep st] CONSULTATION CRITICAL CARE CONSULT HISTORY OF PRESENT ILLNESS: This patient is a 77-year-old female with a history of multiple strokes in the past, atrial fibrillation, and end-stage renal disease, who was admitted yesterday when she hernandez d profound mental status changes associated with a right hemiparesis. She was evaluated via the [facility] and tPA was recommended. She has had improvement, though not completely of her symptoms s johnathon that time. She originally is from [facility], though she has been in the [place] for several y ears but speaks very little [place]. Most of the language barrier is managed with her caretakers, wh o implied that she is definitely better since admission. The details of the admission are a little b it unclear at the moment as to whether or not these were recurrent old symptoms or new symptoms. Reg ardless, she was given tPA, had some difficulty with swallow, but is improved and cleared earlier toemily marcum. REVIEW OF SYSTEMS: Otherwise negative. PAST MEDICAL HISTORY: Includes: 1. Stroke x3 in the past. 2. Atrial fibrillation. 3. Diastolic heart failure. 4. Diabetes. 5. End-stage renal disease. 6. Glaucoma. 7. Hypertension. 8. Permanent pacemaker. 9. Pulmonary hypertension. 10. AV fistula bleeding for which therefore she is not on Coumadin, but does take Plavix and aspirin . 11. Hyperlipidemia. 12. Vitamin D deficiency. PAST SURGICAL HISTORY: Includes: 1. Pacer. 2. Angioplasty of her subclavian in September 2017. 3. Cholecystectomy. 4. Remote G-tube. CURRENT MEDICATIONS: Include Lumigan, Humulin, labetalol, nicardipine, Zofran. PHYSICAL EXAMINATION: VITAL SIGNS: She was afebrile and had a blood pressure of 142/63, heart rate 60, respiratory rate 25, oxygen saturation 97% on 2 L. GENERAL: She was an obese female who was in no apparent distress and with a significant language barrier. HEENT: Pupils equally round and react sophia to light, nonicteric and noninjected. Mucous membranes moist without erythema or exudate. NECK: Supple, without adenopathy or jugular vein distention. RESPIRATORY: Breath sounds were distant, b ut clear to auscultation bilaterally without coarse rales. HEART: Irregular with 2/6 systolic murmu r. ABDOMEN: Soft, nontender. EXTREMITIES: No clubbing, cyanosis, or edema. No bleeding from fist ramona site. Right upper extremity was not moving. SKIN: Warm and dry. OBJECTIVE DATA: Includes no change in her previous head CTs. CBC showed a white count of 8.4, hemat ocrit 36, platelets of 184. Sodium is 130, potassium 5.9, chloride 92, bicarb 21, BUN 87, creatinine 8.2, glucose 253. ASSESSMENT AND PLAN: 1. Mental status changes, presumably from an acute stroke, though it is difficult to prove at this t re. Neurology is involved. She has gotten tissue plasminogen activator. It sounds like her swallo wing has gotten substantially better. We will continue with standard protocol. 2. End-stage renal disease. She should get dialyzed this afternoon, based on her laboratory values. 3. Atrial fibrillation. She seems to be rate controlled at this time. 4. Diabetes. We are holding her long-acting insulin to prevent hypoglycemia, but that should improv e when she is able to take per os. /[id number]/[id number]
--- NOTE | 2017-12-13 15:54 | PDCONSULT ---
Real Estate Lawyer Note: Assessment/Plan: ESRD: on HD MWF. - Will do HD today per routine. HTN: BP ok in 140s currently, would continue to hold her BP meds for now and allow some permissive HTN in setting of mental status changes. Hyperkalemia; will modulate on HD. Hyponatremia: will modulate on HD. Anemia; Hgb at goal at 11.8, no need for epo, will monitor. Thank you for the interesting consult. Nephrology will continue to follow, please call if you have any additional questions or concerns. H & P Stated Complaint: STROKE ALERT Time Seen by Provider: 12/12/17 19:58 HPI/ROS: HPI: Ms. Tineo is a 77 yo F with h/o ESRD on HD MWF at [facility] under Dr. Argueta and prior CVA who presented to ER overnight with altered mental status. Pt's family notes that she suddenly seemed to become unresponsive and far more aphasic than her baseline, so brought to ER. She was moving BLE and LUE but not R arm, and was not following commands. She was given tPA in ER and family notes she seemed to wake up more after that. Today she is somnolent but arousable, moving extremities, feeling tired. She is positive for coronavirus, noted that has a mild URI. She was last dialyzed per routine on Wednesday. ROS: unable to obtain 2/2 clinical condition Source: Family, Other (medical record) - Personal History Current Tetanus/Diphtheria Vaccine: Yes Current Tetanus Diphtheria and Acellular Pertussis (TDAP): Yes - Medical/Surgical History Hx Asthma: No Hx Chronic Respiratory Disease: Yes Hx Diabetes: Yes Hx Cardiac Disease: Yes Hx Renal Disease: Yes Hx Cirrhosis: No Hx Alcoholism: No Hx HIV/AIDS: No Hx Splenectomy or Spleen Trauma: No Other PMH: CVA, TIA,pacemaker, CRF-dialysis patient with fistula in RUE, DMII, CHF, cholecystectomy - Family History Significant Family History: No pertinent family hx - Social History Smoking Status: Never smoked - Physical Exam Exam: General: somnolent but arousable, no acute distress Eyes: EOMI, PERRL OP: Clear, MMM Neck: supple, no thyromegaly CV: RRR, no edema BLE Resp: CTA bilat, nonlabored respirations on NC Abd: Soft, NT/ND Neuro: no asterixis Skin: C/D/I, no rash Access: RUE AVF with thrill and bruit appreciated Constitutional: Initial Vital Signs Temperature (C) 36.7 C 12/12/17 19:59 Heart Rate 79 12/12/17 19:59 Respiratory Rate 18 12/12/17 19:59 Blood Pressure 169/80 H 12/12/17 19:59 O2 Sat (%) 97 12/12/17 19:59 O2 Delivery Mode Room Air O2 (L/minute) 2 Allergies/Adverse Reactions: Penicillins Allergy (Severe, Verified 12/12/17 20:14) Anaphylaxis Home Medications: Medication Instructions Recorded Clopidogrel Bisulfate [Plavix (*)] 75 mg PO DAILY18 03/05/13 Losartan Potassium [Cozaar] 100 mg PO DAILY18 03/05/13 Simvastatin [Zocor 40 mg] 40 mg PO HS 03/05/13 amLODIPine BESYLATE [Norvasc 10 mg 5 mg PO DAILY18 03/05/13 (*)] Aspirin [Aspirin 325 mg (*)] 325 mg PO DAILY18 01/17/14 Cholecalciferol Vit D3 [Vitamin D3 1,000 units PO DAILY 01/17/14 (*)] Levothyroxine [Synthroid 112 mcg 112 mcg PO DAILY 01/17/14 (*)] Sevelamer Carbonate [Renvela] 1,600 mg PO BIDMEAL 01/17/14 Herbals/Supplements -Info Only 1 ea PO DAILY 06/01/14 Bimatoprost [Lumigan] 1 drop EACHEYE HS 03/06/16 Brinzolamide/Brimonidine Tart 1 drop EACHEYE BID 03/06/16 [Simbrinza 1%-0.2% Eye Drops] Insulin Detemir [Levemir] 16 units SC AUGUSTIN@08 03/06/16 Insulin Detemir [Levemir] 20 units SC MOTUWETHFRSA@03/06/16 C/E/Zn/Cu/OM3/DHA/EPA/LUT/ZEAX 2 each PO DAILY 04/22/17 [Preservision Areds 2 Softgel] Lansoprazole [Prevacid] 30 mg PO BID 04/22/17 Atenolol [Tenormin 50 mg (*)] 50 mg PO DAILY PRN 06/13/17 Folic Acid/Vit B Complex and C 0.8 mg PO DAILY@18 06/13/17 [Renal Vitamin Tablet] Sevelamer Carbonate [Renvela] 1,600 mg PO DAILY@12 06/13/17 Refresh Tears 1 drop EACHEYE PRN PRN 06/14/17 Lab and Imaging 12/13/17 04:00 12/13/17 04:00 WBC 8.41 10^3/uL (3.80-9.50) 12/13/17 04:00 RBC 3.73 10^6/uL (4.18-5.33) L 12/13/17 04:00 Hgb 11.8 g/dL (12.6-16.3) L 12/13/17 04:00 POC Hgb 16.7 gm/dL (12.6-16.3) H 12/12/17 20:04 Hct 36.6 % (38.0-47.0) L 12/13/17 04:00 POC Hct 49 % (38-47) H 12/12/17 20:04 MCV 98.1 fL (81.5-99.8) 12/13/17 04:00 MCH 31.6 pg (27.9-34.1) 12/13/17 04:00 MCHC 32.2 g/dL (32.4-36.7) L 12/13/17 04:00 RDW 16.2 % (11.5-15.2) H 12/13/17 04:00 Plt Count 184 10^3/uL (150-400) 12/13/17 04:00 MPV 10.7 fL (8.7-11.7) 12/13/17 04:00 Neut % (Auto) 71.4 % (39.3-74.2) 12/13/17 04:00 Lymph % (Auto) 9.8 % (15.0-45.0) L 12/13/17 04:00 [place] % (Auto) 7.6 % (4.5-13.0) 12/13/17 04:00 Eos % (Auto) 10.1 % (0.6-7.6) H 12/13/17 04:00 Baso % (Auto) 0.7 % (0.3-1.7) 12/13/17 04:00 Nucleat RBC Rel Count 0.0 % (0.0-0.2) 12/13/17 04:00 Absolute Neuts (auto) 6.01 10^3/uL (1.70-6.50) 12/13/17 04:00 Absolute Lymphs (auto) 0.82 10^3/uL (1.00-3.00) L 12/13/17 04:00 Absolute Monos (auto) 0.64 10^3/uL (0.30-0.80) 12/13/17 04:00 Absolute Eos (auto) 0.85 10^3/uL (0.03-0.40) H 12/13/17 04:00 Absolute Basos (auto) 0.06 10^3/uL (0.02-0.10) 12/13/17 04:00 Absolute Nucleated RBC 0.00 10^3/uL (0-0.01) 12/13/17 04:00 Immature Gran % 0.4 % (0.0-1.1) 12/13/17 04:00 Immature Gran # 0.03 10^3/uL (0.00-0.10) 12/13/17 04:00 PT 14.6 SEC (12.0-15.0) 12/12/17 19:50 INR 1.12 (0.83-1.16) 12/12/17 19:50 APTT 32.5 SEC (23.0-38.0) 12/12/17 19:50 POC Sodium 131 mEq/L (135-145) L 12/12/17 20:04 Sodium 130 mEq/L (135-145) L 12/13/17 04:00 POC Potassium 5.2 mEq/L (3.3-5.0) H 12/12/17 20:04 Potassium 5.9 mEq/L (3.5-5.2) H 12/13/17 04:00 POC Chloride 96 mEq/L (97-110) L 12/12/17 20:04 Chloride 92 mEq/L (97-110) L 12/13/17 04:00 Carbon Dioxide 21 mEq/l (22-31) L 12/13/17 04:00 Anion Gap 17 mEq/L (8-16) H 12/13/17 04:00 POC BUN 74 mg/dL (7-23) H 12/12/17 20:04 BUN 87 mg/dL (7-23) H 12/13/17 04:00 Creatinine 8.2 mg/dL (0.6-1.0) H* 12/13/17 04:00 POC Creatinine 8.2 mg/dL (0.6-1.0) H* 12/12/17 20:04 Estimated GFR 5 12/13/17 04:00 Glucose 232 mg/dL (70-100) H 12/13/17 04:00 POC Glucose 236 mg/dL (70-100) H 12/13/17 10:47 Hemoglobin A1c 5.9 % (4.0-6.0) 12/13/17 04:00 Estim Average Glucose 123 mg/dL (68-126) 12/13/17 04:00 Calcium 8.6 mg/dL (8.5-10.4) 12/13/17 04:00 Phosphorus 7.5 mg/dL (2.5-4.5) H 12/13/17 04:00 Magnesium 2.7 mg/dL (1.6-2.3) H 12/13/17 04:00 Troponin I 0.015 ng/mL (0.000-0.034) 12/12/17 19:50 Triglycerides 78 mg/dL (35-135) 12/13/17 04:00 Cholesterol 77 mg/dL (140-220) L 12/13/17 04:00 Cholesterol Risk Factr 0.4 (0.2-1.0) 12/13/17 04:00 LDL Cholesterol, Calc 28 mg/dL (80-100) L 12/13/17 04:00 LDL Risk Factor 0.4 (0.2-1.0) 12/13/17 04:00 VLDL Cholesterol 15 mg/dL (8-25) 12/13/17 04:00 Non-HDL Cholesterol 43 mg/dL (90-129) L 12/13/17 04:00 HDL Cholesterol 34 mg/dL (40-85) L 12/13/17 04:00 LDL/HDL Ratio 0.82 RATIO (1.00-3.22) L 12/13/17 04:00 Cholesterol/HDL Ratio 2.26 RATIO (1.00-4.44) 12/13/17 04:00
--- NOTE | 2017-12-13 16:03 | GCON ---
[f rep st] CONSULTATION NEUROLOGY CONSULT DATE OF CONSULTATION: 12/13/2017 REFERRING PHYSICIAN: Romeo Morin MD CHIEF COMPLAINT: Transient neurologic symptoms. HISTORY OF PRESENT ILLNESS: This is a very pleasant 77-year-old lady who is well known to the neurologic service due to previous strokes from atrial fibrillation. She is not on oral anticoagulation due to previous bleeding from an AV fistula. She is on dual anti-platelet therapy with Plavix and full-dose aspirin. She had previous strokes with chronic deficits of aphasia and right hemiparesis. She had acute on chronic right hemiparesis in May of last year , seen by my colleague, Dr. Monzon, who felt this may be post stroke recrudescence in the setting of chronic renal failure. She is on dialysis 3 days per week. Please see previous notes for details. She again had acute on chronic right-sided weakness associated with mental status changes. She was found to be menard virus positive and her has a viral upper respiratory tract infection. She was seen in the ER after a Stroke Alert, and tPA was given. She had CTA of the head and neck. 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 Her left ICA has increased to 70% focal stenosis at the origin. She has cross- filling via anterior and posterior communicating arteries. Multiple stable findings noted in the report. CT of the head without contrast showed stable findings without hemorrhage and multiple areas of encephalomalacia from previous old infarcts. She received tPA and has been fairly stable overnight. For past medical history, social history, family history, home medications and allergies, please see Dr. Morin's note. PHYSICAL EXAMINATION: VITAL SIGNS: Blood pressure is 137/49, heart rate 60, respirations 15. NEUROLOGIC: Higher mental status: Patient is drowsy and has inconsistent response to exam. Her left tax manager public strength is greater than the right. Exam is inconsistent and difficult due to language barrier and aphasia. IMPRESSION AND PLAN: 1. Atrial fibrillation. 2. Previous cerebral infarcts. 3. Transient neurologic symptoms. 4. Status post tissue plasminogen activator. The patient's acute on chronic right-sided weakness in the setting of chronic right-sided weakness and aphasia from previous strokes is unclear. This may be a new transient ischemic attack or stroke from atrial fibrillation or left carotid disease. Alternatively, this may represent post stroke recrudescence in the setting of viral illness or underlying metabolic factors in the setting of chronic renal disease. She is at risk for all of these multiple disorders as noted in her medical history. I discussed all this at length with the patient's son and caregivers. We had a long discussion regarding their philosophy of care which is mainly directed towards comfort care and nonaggressive interventions at this point. She is a [id number] patient and they would not like any aggressive measures. I understood and respect their wishes along with the patient's stated wishes per the family. We discussed options at length and decided together to proceed with the protocol of a noncontrast head CT scan 24 hours after tPA, which will be at 9: 00 p.m. If this scan does not show any post tPA bleeding, please restart anti- platelet therapy in the form of Plavix 75 mg daily and aspirin 325 mg daily as she was on previously. The patient is already on statin therapy. Other medications per Hospital Medicine and Nephrology. She will be dialyzed later today. She can receive therapies including physical therapy as indicated. Depending on how she does, we can potentially consider discharging her back home tomorrow based on her clinical course with the appropriate therapies and caregivers at home. It was a pleasure to meet this patient and her family. No further recommendations now. We will follow up as needed. Please do not hesitate to call with any questions or changes in neurologic status of this very pleasant patient. Thank you for the consultation. seventy total minutes floor time today reviewing extensive previous medical and neurologic records, current imaging and records, along with counseling the patient, family, caregivers, and coordination of care. /[id number]/MODL MTDD
--- NOTE | 2017-12-13 18:39 | HOSPPROG ---
Hospitalist Progress Note Assessment/Plan: Assessment: 77-year-old female presents with acutely worsening aphasia and paresis, concerning for acute CVA vs. prior-CVA recrudence Plan: 1. Acute CVA. Evidenced by worsening aphasia and right upper extremity paresis with high risk of cardioembolic source given her ongoing atrial fibrillation without systemic anticoagulation secondary to bleeding AV fistula, as well as 100% occlusion of the right ICA and 70% occlusion of the left ICA -D#1 s/p tPA -d/w Dr. Will, it will be impossible to objectively determine whether this event was overt acute CVA or prior-CVA recrudence in setting of coronavirus and electrolyte abnl w/ ESRD, but, outside of the tPA which has been administered, the recommendations for medical mgmt remain the same, w/ resumption of DAPT (asa /plavix) this evening after stable HCT obtained, and the guidance given to family that it is highly likely that patient will experience reoccurrence of these symptoms w/ the potential for worsening if in fact this is 2/2 CVA from her underlying LICA plaque and Afib -counseled family and showed son/ her HCT w/ dense encephalomalcia in the L temp/parietal area to help them understand the connection between her permanent, structural brain disease and the symptoms (aphasia and RUE/RLE paresis) they have experienced -current neuro exam reveals flaccid distal RUE and intact sensation on RLE but w / upgoing toes and no volitional movement RLE, albeit she is now able to follow commands w/ movement in LUE/LLE and can open eyes/make verbal expressions more readily than last PM -I counseled the family that palliative+home care will be her most supportive options, and case mgmt is planning on arranging these in AM and discharging if patient stable -I also shared w/ them the anticipated course for her, which includes aspiration pneumonia from her swallow/mobility deficits, we discussed those symptoms of pneumonia, and, given her previously stated goals of care, I encouraged them to care for her at home w/ palliative care/hospice, and not to seek additional hospitalization, as further hospitalization is unlikely to be of medical benefit and comfort is more in line w/ previously stated goals of care 2. End-stage renal disease. D/w Dr. Sheriff, performing HD this PM to optimize electrolyte status 3. 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 Historically labile glucose levels w/ long-acting insulin and poor renal clearance w/ ESRD -low PO intake today, give D50 for gluc < 70 -low-potency ISS 4. Chronic diastolic congestive heart failure. Chest x-ray with visible interstitial markings but no significant physical exam evidence of volume overload, monitor while on IV fluids 5. Atrial fibrillation. Paroxysmal, continue home medications 6. Chronic hypoxic respiratory failure. Recommended to family that they keep o2 on her at all times, as hypoxic w/ transfers upstairs/downstairs can certainly result in hypoxic encephalopathy 7. Hyponatremia. Acute, 2/2 ESRD volume, correct w/ HD 8. Coronavirus viral syndrome. Likely contracted from who has been recently ill, may have led to recrudence of prior CVA deficits 9. Hyperkalemia. Acute, K 5.9, given amp bicarb prior to HD Diet. Swallow recs Code status. Do not resuscitate/do not intubate, her is her MD POA Prophylaxis. SCDs, hold pharm given tPA Disposition. Anticipated discharge is 12/14, remains critically ill w/ f/u HCT this evening. 60 min of critical care time spent with this patient, at bedside in ICU w/ family, the patient's ICU nurse, coordinating w/ Suman Mauro, [place], specifically addressing patient's acute CVA which renders her critically ill at this juncture with high risk of morbidity and/or mortality. Subjective: patient more interactive, expressing herself Objective: Vital Signs Temp Pulse Resp BP Pulse Ox 36.8 C 60 25 H 154/62 H 100 12/13/17 15:45 12/13/17 17:45 12/13/17 17:45 12/13/17 17:45 12/13/17 17:45 Microbiology 12/12/17 23:47 Respiratory Panel (PCR) - Final Nasal, Sinus - Swab Coronavirus Hku1 Detected Laboratory Results 12/13/17 04:00 12/13/17 16:00 12/12/17 12/13/17 12/14/17 05:59 05:59 05:59 Intake Total 475 967 Output Total 0 500 Balance 475 467 PT 14.6 SEC (12.0-15.0) 12/12/17 19:50 INR 1.12 (0.83-1.16) 12/12/17 19:50 - Pending Discharge Pending Discharge Within 24 Hours: Yes Pending Discharge Date: 12/14/17 Pending Discharge Time: 11:00 - Physical Exam Constitutional: no apparent distress, not in pain, chronically ill appearing, No uncomfortable Cardiovascular: regular rate and rhythym, systolic murmur (II/ at sternum and apex), No irregularly irregular, No tachycardia, No edema Respiratory: no respiratory distress, no rales or rhonchi, clear to auscultation Gastrointestinal: normoactive bowel sounds, soft, non-tender abdomen, no palpable masses, No distension Neurologic: other (5/5 motor LUE/LLE, sensation intact all ext, no volitional movement RUE/RLE, toes upgoing RLE) Psychiatric: not anxious, other (lethargic but more arousable than day prior) ICD10 Worksheet Patient Problems: Problems Problem Status Onset Chronic Disease Management/Transitional Care Program Active Stroke Acute Subdural hematoma Acute Diabetes mellitus Acute Deep venous thrombosis of right upper extremity Acute Chronic renal failure Acute CVA (cerebral vascular accident) Acute Hyponatremia Acute Anemia Acute Hypochloremia Acute Right sided weakness Acute End stage renal disease Acute
[2017-12-13] MEDS ORDERED: ATORVASTATIN CALCIUM 20 MG TAB PO SCH (23:15)
[2017-12-13] MEDS: ASPIRIN 325 MG TAB PO SCH (23:25)
[2017-12-13] MEDS: CLOPIDOGREL BISULFATE 75 MG TAB PO SCH (23:25)
[2017-12-13] MEDS: SIMVASTATIN 40 MG PO SCH (23:32)
[2017-12-13] MEDS: BIMATOPROST 0.01% 2.5 ML OPHT.BTL EACHEYE SCH (23:33)
[2017-12-14] MEDS: INSULIN REGULAR HUMAN 100 UNIT/ML UNIT SC SCH ×4 (06:40→23:49)
[2017-12-14] MEDS: EYE EACHEYE SCH ×2 (09:20→20:47)
[2017-12-14] MEDS: LEVOTHYROXINE 112 MCG TAB PO SCH (09:20)
[2017-12-14] MEDS: BRIMONIDINE EACHEYE SCH ×2 (09:20→20:47)
[2017-12-14] MEDS: BRINZOLAMIDE EACHEYE SCH ×2 (09:20→20:47)
[2017-12-14] MEDS: PANTOPRAZOLE SODIUM 40 MG TAB PO SCH (09:20)
--- NOTE | 2017-12-14 09:51 | NEUROPROG ---
Assessment: 1. Previous cerebral infarcts 2. Atrial fibrillation 3. Carotid disease 4. Acute neurologic deficits 5. Status post tPA The [address] head [address] without contrast did not show any hemorrhage. She was restarted on Plavix 75 mg and aspirin 325 mg daily. The patient cannot be on oral anticoagulation due to bleeding from her AV fistula in regards to her underlying atrial fibrillation. Also, her family does not want any surgical intervention for her carotid disease. She remains weak on the right side. She has chronic right-sided weakness and aphasia from her previous left hemisphere stroke. She certainly may have had a recurrent left hemisphere stroke from either left carotid artery disease or atrial fibrillation. Small vessel disease may also have played a role. In any case, after a long discussion with the family yesterday they do not wish any aggressive interventions such as carotid endarterectomy or stenting. They understand the risks, benefits and alternatives of their medical decision making and have incorporated the patient wishes and philosophy of care. She is also on statin therapy in addition to dual anti-platelet therapy. She will likely discharge home in the near future with therapies as indicated. 35 total minutes floor time; this included review of testing, counseling with the patient and caregivers, and coordination of care. We will continue to follow as needed. Please do not hesitate to call if there are any questions or changes in neurologic status with this very pleasant patient. Subjective: No new symptoms Objective: Vital Signs Temp Pulse Resp BP Pulse Ox 36.6 C 60 19 150/83 H 100 12/13/17 20:45 12/14/17 09:00 12/14/17 09:00 12/14/17 09:00 12/14/17 09:00 Microbiology 12/12/17 23:47 Respiratory Panel (PCR) - Final Nasal, Sinus - Swab Coronavirus Hku1 Detected Laboratory Results 12/14/17 05:20 12/14/17 05:20 12/13/17 12/14/17 12/15/17 05:59 05:59 05:59 Intake Total 475 967 Output Total 0 1000 Balance 475 -33 PT 14.6 SEC (12.0-15.0) 12/12/17 19:50 INR 1.12 (0.83-1.16) 12/12/17 19:50 Patient is more awake and alert today Remains weak on the right side Allergies/Adverse Reactions: Penicillins Allergy (Severe, Verified 12/12/17 20:14) Anaphylaxis
--- NOTE | 2017-12-14 10:49 | SOAPPROG ---
SOAP Progress Note Assessment/Plan: Assessment/Plan: ESRD: on HD MWF. - Will do HD tomorrow per routine. HTN: will restart losartan today and continue to monitor. Hyperkalemia: improved with HD. Anemia: Hgb at goal at 12, no need for epo, will continue to monitor. Access: RUE with swelling, arranging for fistulagram. Subjective: No acute events overnight. Pt tolerated HD fine yesterday. Noted she has more swelling in her R arm today. Objective: Vital Signs Temp Pulse Resp BP Pulse Ox 36.6 C 60 19 150/83 H 100 12/13/17 20:45 12/14/17 09:00 12/14/17 09:00 12/14/17 09:00 12/14/17 09:00 Microbiology 12/12/17 23:47 Respiratory Panel (PCR) - Final Nasal, Sinus - Swab Coronavirus Hku1 Detected Laboratory Results 12/14/17 05:20 12/14/17 05:20 12/13/17 12/14/17 12/15/17 05:59 05:59 05:59 Intake Total 475 967 Output Total 0 1000 Balance 475 -33 PT 14.6 SEC (12.0-15.0) 12/12/17 19:50 INR 1.12 (0.83-1.16) 12/12/17 19:50 General: somnolent but arousable, no acute distress Eyes: EOMI, PERRL OP: Clear CV: RRR Resp: nonlabored respirations Abd: Soft, NT Ext: no edema BLE, +2 edema RUE Access: RUE with thrill and bruit appreciated ICD10 Worksheet Patient Problems: Problems Problem Status Onset Chronic Disease Management/Transitional Care Program Active Stroke Acute Subdural hematoma Acute Diabetes mellitus Acute Deep venous thrombosis of right upper extremity Acute Chronic renal failure Acute CVA (cerebral vascular accident) Acute Hyponatremia Acute Anemia Acute Hypochloremia Acute Right sided weakness Acute End stage renal disease Acute
[2017-12-14] MEDS ORDERED: ATENOLOL 50 MG TAB PO PRN (11:13)
--- NOTE | 2017-12-14 11:14 | HOSPPROG ---
Hospitalist Progress Note Assessment/Plan: # acute CVA s/p tPA - hx multiple infarcts in past - restarted asa/plavix - statin - palliative care c/s today # carotid stenosis - discussed wtih family - they do not want surgery # ESRD - HD per renal # R arm edema - history of subclavian v. stenosis s/p stent - fistulogram today or tomorrow # a-fib/ppm - no AC d/t fistula bleeding - paced rhythm # coronavirus - supportive care # DM2 - restart home insulin now that taking PO # chronic hypoxic resp failure - on O2 # hypoNa - better Subjective: concerned about her Right arm - it is swollen and not moving Objective: Vital Signs Temp Pulse Resp BP Pulse Ox 36.6 C 60 19 150/83 H 100 12/13/17 20:45 12/14/17 09:00 12/14/17 09:00 12/14/17 09:00 12/14/17 09:00 Microbiology 12/12/17 23:47 Respiratory Panel (PCR) - Final Nasal, Sinus - Swab Coronavirus Hku1 Detected Laboratory Results 12/14/17 05:20 12/14/17 05:20 12/13/17 12/14/17 12/15/17 05:59 05:59 05:59 Intake Total 475 967 Output Total 0 1000 Balance 475 -33 PT 14.6 SEC (12.0-15.0) 12/12/17 19:50 INR 1.12 (0.83-1.16) 12/12/17 19:50 chart reviewed discussed with Dr Brantley and ICU team on rounds CTH, CTA reviewed - Physical Exam Constitutional: chronically ill appearing Cardiovascular: regular rate and rhythym, no murmur, rub, or gallop Respiratory: no respiratory distress, no rales or rhonchi Gastrointestinal: normoactive bowel sounds, no palpable masses Musculoskeletal: other (R arm edema) Neurologic: other (R hemiparesis; aphasia) ICD10 Worksheet Patient Problems: Problems Problem Status Onset Chronic Disease Management/Transitional Care Program Active Stroke Acute Subdural hematoma Acute Diabetes mellitus Acute Deep venous thrombosis of right upper extremity Acute Chronic renal failure Acute CVA (cerebral vascular accident) Acute Hyponatremia Acute Anemia Acute Hypochloremia Acute Right sided weakness Acute End stage renal disease Acute
[2017-12-14] MEDS ORDERED: NON-FORMULARY NEW DRUG (Sevelamer Carbonate [Renvela] 1,600 MG) PO SCH ×2 (12:00→18:00)
[2017-12-14] MEDS: LOSARTAN POTASSIUM 50 MG TAB PO SCH ×2 (12:21→17:54)
[2017-12-14] MEDS ORDERED: IPRATROPIUM/ALBUTEROL 3 ML DEYVIAL ONE (15:43)
--- NOTE | 2017-12-14 17:03 | ASMTCMCOM ---
HELENE Note CM Note Notes: "Palliative Meeting" Emma with son-ORTIZ- Shankar, patient's and Caregiver- Mechelle. Family from [facility]. Son acts as pump operator. They are Anabaptist. 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 They understand that she is not a surgical candidate. Patient is DNR/DNI, Family would like her to be as clear thinking when she moves from this life to the next and don't want her on medicine that might cloud or impair her thinking. They would like her to have as much time as possible that medicine can give her. They wish to continue w/dialysis and come to the hospital when needed. They would like to take her home but she lives on the 2nd floor and unable to move her R side. Her son and are her care providers along with other Buddhists who live at their commune. At this time they are unable to take her home. Presently, patient can not transfer without max assist. I'm not sure what her dialysis clinic requires? Therapies are recommending In-pt Rehab. [facility] In-pt Rehab does not offer dialysis. Contact made to [facility] Admissions in [facility]. They suggest that patient go to LTAC where she can get dialysis and then when she is able, she could go to their In-pt Rehab. She will need to be able to transfer herself to be transported 3x/wk to dialysis. If she is unable to transfer they will be making Hospice arrangements. It seems important now to have a cognitive eval to determine patient's cog abilities. Family might find that this is asking too much of their loved one and want to choose Hospice. Date Signed: 12/14/2017 05:02 PM Electronically Signed By:Miroslava Wallace LCSW
[2017-12-14] MEDS: ASPIRIN 325 MG TAB PO SCH (17:52)
[2017-12-14] MEDS: CLOPIDOGREL BISULFATE 75 MG TAB PO SCH (17:53)
[2017-12-14] MEDS ORDERED: NON-FORMULARY NEW DRUG (Losartan Potassium [Cozaar] 100 MG) PO SCH (18:00)
[2017-12-14] MEDS: BIMATOPROST 0.01% 2.5 ML OPHT.BTL EACHEYE SCH (20:46)
[2017-12-14] MEDS: SIMVASTATIN 40 MG PO SCH (20:48)
[2017-12-15] MEDS: INSULIN REGULAR HUMAN 100 UNIT/ML UNIT SC SCH ×3 (06:20→18:37)
[2017-12-15] MEDS ORDERED: INSULIN DETEMIR 20 UNIT SC SCH (08:00)
[2017-12-15] MEDS: LOSARTAN POTASSIUM 50 MG TAB PO SCH ×2 (10:05→18:36)
[2017-12-15] MEDS: LEVOTHYROXINE 112 MCG TAB PO SCH (10:05)
[2017-12-15] MEDS: BRINZOLAMIDE EACHEYE SCH ×2 (10:08→22:45)
[2017-12-15] MEDS: EYE EACHEYE SCH ×2 (10:08→22:45)
[2017-12-15] MEDS: BRIMONIDINE EACHEYE SCH ×2 (10:08→22:45)
[2017-12-15] MEDS: INSULIN GLARGINE 100 UNITS/ML SYRINGE SC SCH (10:15)
[2017-12-15] MEDS: PRESERVISION AREDS2 FORMULA EYE VIT 1 EACH PO SCH (10:15)
[2017-12-15] MEDS: PANTOPRAZOLE SODIUM 40 MG TAB PO SCH (10:25)
--- NOTE | 2017-12-15 10:45 | ASMTCMCOM ---
CM Note CM Note Notes: * Please see CM note 12/14 * Patient's family is still undecided on discharge plan. Given this, I sent referrals to a few area LTACs and SNFs. I also spoke with VIOLETTE Shipman at [facility] who says that patient may still come for dialysis there even though she cannot transfer independently. Per Ramonita, patient is almost always accompanied by a caregiver and her son, and there are at least two staff on duty. If patient goes to SNF and they can transport her, keeping her chair time at [facility] should not be a problem. We will wait for family to decide what they want for patient and proceed. Date Signed: 12/15/2017 10:44 AM Electronically Signed By:Janette Hilton RN
--- NOTE | 2017-12-15 12:35 | HOSPPROG ---
Hospitalist Progress Note Assessment/Plan: # acute CVA s/p tPA - hx multiple infarcts in past - restarted asa/plavix - statin # carotid stenosis - discussed with family - they do not want surgery # ESRD - HD today # R arm edema - history of subclavian v. stenosis s/p stent - fistulogram today # a-fib/ppm - no AC d/t fistula bleeding - paced rhythm # coronavirus - supportive care # DM2 - restart home insulin now that taking PO # chronic hypoxic resp failure - on O2 # hypoNa - better # goals of care - see palliative care not for details, but DNR, want all other possible interventions and value quantity of life greater than quality Subjective: R arm still swollen; no other complaints Objective: Vital Signs Temp Pulse Resp BP Pulse Ox 36.5 C 60 14 134/48 H 98 12/15/17 11:01 12/15/17 11:01 12/15/17 11:01 12/15/17 11:01 12/15/17 11:01 Laboratory Results 12/14/17 05:20 12/15/17 04:44 12/14/17 12/15/17 12/16/17 05:59 05:59 05:59 Intake Total 967 200 Output Total 1000 Balance -33 200 PT 14.6 SEC (12.0-15.0) 12/12/17 19:50 INR 1.12 (0.83-1.16) 12/12/17 19:50 - Physical Exam Constitutional: chronically ill appearing Cardiovascular: regular rate and rhythym, no murmur, rub, or gallop Respiratory: no rales or rhonchi, clear to auscultation Gastrointestinal: soft, non-tender abdomen, no palpable masses Musculoskeletal: other (R arm edema) ICD10 Worksheet Patient Problems: Problems Problem Status Onset Chronic Disease Management/Transitional Care Program Active Stroke Acute Subdural hematoma Acute Diabetes mellitus Acute Deep venous thrombosis of right upper extremity Acute Chronic renal failure Acute CVA (cerebral vascular accident) Acute Hyponatremia Acute Anemia Acute Hypochloremia Acute Right sided weakness Acute End stage renal disease Acute
--- NOTE | 2017-12-15 18:06 | SOAPPROG ---
SOAP Progress Note Assessment/Plan: Assessment: 1. ESRD. HD on MWF schedule. 2. AVF stenosis. Fistulagram tomorrow. Should help with R arm swelling. 3. Acute CVA. Not candidate for anticoagulation. Family does not want carotid surgery. Med mgmt. 4. Dispo. Pending. Plan: 12/15/17 18:05 Subjective: Seen on dialysis. Fistulagram rescheduled for tomorrow. No new complaints. Objective: Vital Signs Temp Pulse Resp BP Pulse Ox 36.3 C 63 14 141/59 H 100 12/15/17 15:25 12/15/17 15:25 12/15/17 15:25 12/15/17 15:25 12/15/17 15:25 Laboratory Results 12/14/17 05:20 12/15/17 04:44 12/14/17 12/15/17 12/16/17 05:59 05:59 05:59 Intake Total 967 200 Output Total 1000 Balance -33 200 PT 14.6 SEC (12.0-15.0) 12/12/17 19:50 INR 1.12 (0.83-1.16) 12/12/17 19:50 On dialysis. RRR, no m/g/r CTAB Abdom soft, nt R arm with marked edema. No LE edema Neuro- slightly lethargic. Does not move R leg ICD10 Worksheet Patient Problems: Problems Problem Status Onset Chronic Disease Management/Transitional Care Program Active Stroke Acute Subdural hematoma Acute Diabetes mellitus Acute Deep venous thrombosis of right upper extremity Acute Chronic renal failure Acute CVA (cerebral vascular accident) Acute Hyponatremia Acute Anemia Acute Hypochloremia Acute Right sided weakness Acute End stage renal disease Acute
[2017-12-15] MEDS: CLOPIDOGREL BISULFATE 75 MG TAB PO SCH (18:36)
[2017-12-15] MEDS: ASPIRIN 325 MG TAB PO SCH (18:37)
[2017-12-15] MEDS: BIMATOPROST 0.01% 2.5 ML OPHT.BTL EACHEYE SCH (22:46)
[2017-12-15] MEDS: SIMVASTATIN 40 MG PO SCH (22:50)
[2017-12-16] MEDS: INSULIN REGULAR HUMAN 100 UNIT/ML UNIT SC SCH ×4 (03:00→18:11)
[2017-12-16] MEDS: PRESERVISION AREDS2 FORMULA EYE VIT 1 EACH PO SCH ×2 (07:48→11:37)
[2017-12-16] MEDS: INSULIN GLARGINE 100 UNITS/ML SYRINGE SC SCH ×2 (07:48→11:33)
[2017-12-16] MEDS: LEVOTHYROXINE 112 MCG TAB PO SCH ×2 (07:49→11:33)
[2017-12-16] MEDS: PANTOPRAZOLE SODIUM 40 MG TAB PO SCH ×3 (07:50→11:35)
[2017-12-16] MEDS: BRINZOLAMIDE EACHEYE SCH ×2 (07:53→21:35)
[2017-12-16] MEDS: EYE EACHEYE SCH ×2 (07:53→21:35)
[2017-12-16] MEDS: BRIMONIDINE EACHEYE SCH ×2 (07:53→21:35)
[2017-12-16] MEDS: LOSARTAN POTASSIUM 50 MG TAB PO SCH ×3 (09:52→18:15)
--- NOTE | 2017-12-16 09:55 | PDGENHP ---
History & Physical Chief Complaint: arm swelling History of Present Illness: ESRD with longstanding AVF. treated multiple time prior for subclavian segment stenosis. current admission for CVA, infectious RF. Still able to dialyze. Relevant Physical Exam: decreased alertness, +fistula thrill, oxygenating well. Cardiorespiratory Assessment: RRR, supplemental O2
--- NOTE | 2017-12-16 09:56 | PDPROPOC ---
Sedation Plan of Care Sedation Plan of Care: vital signs stable ASA Classification: ASA 3 Planned drugs: other (no sedation) Mallampati Score: Unable to assesss Mallampati Reference Image:
--- NOTE | 2017-12-16 10:56 | PDRADPN ---
Radiology Procedure Note Date of Procedure: 12/16/17 Radiologist: Cedrick Melgar Anesthesia: Local (Specify) Pre-op Diagnosis: recurrent subclavian vein stenosis Post-op Diagnosis: same Indication: arm swelling/prolonged bleeding Procedure: fistulagram/venoplasty Finding(s): ~60-75% recurrent in stent stenosis of right subclavian vein. Excellent lumen nondenominational after single 60s [id number] venoplasty. Inf/Abcess present in the surg proc area at time of surgery?: No EBL: Minimal Complications: none
[2017-12-16] MEDS ORDERED: IOPAMIDOL (ISOVUE-300) 100 ML BTL ONE (11:00)
[2017-12-16] MEDS ORDERED: LIDOCAINE 1% 300 MG/30 ML SDV ONE (11:01)
--- NOTE | 2017-12-16 13:01 | HOSPPROG ---
Hospitalist Progress Note Assessment/Plan: # acute CVA s/p tPA - hx multiple infarcts in past - restarted asa/plavix - statin # carotid stenosis - discussed with family - they do not want surgery # ESRD - HD today # R arm edema - s/p fistulogram with angioplasty - should resolve after this intervention # a-fib/ppm - no AC d/t fistula bleeding - paced rhythm # coronavirus - supportive care # DM2 - home insulin # chronic hypoxic resp failure - on O2 # hypoNa - better # goals of care - see palliative care not for details, but DNR, want all other possible interventions and value quantity of life greater than quality # dispo - dc to [facility] tomorrow after HD; discussed with Dr Perkins - he will coordinate HD for tomorrow am unless there is an emergency Subjective: no acute events overnight; discussed with patient's son and Dr Perkins Objective: Vital Signs Temp Pulse Resp BP Pulse Ox 37.1 C 60 16 145/70 H 95 12/16/17 11:11 12/16/17 11:11 12/16/17 11:11 12/16/17 11:11 12/16/17 11:11 Laboratory Results 12/14/17 05:20 12/16/17 04:58 12/15/17 12/16/17 12/17/17 05:59 05:59 05:59 Intake Total 200 980 300 Balance 200 980 300 PT 14.6 SEC (12.0-15.0) 12/12/17 19:50 INR 1.12 (0.83-1.16) 12/12/17 19:50 - Time Spent With Patient Time Spent with Patient: greater than 25 minutes Time Spent with Patient: Greater than 25 minutes spent on this patients care, greater than 50% of time spent counseling, educating, and coordinating care regarding the above mentioned plan. - Physical Exam Constitutional: chronically ill appearing, other (R sided hemiparesis) ICD10 Worksheet Patient Problems: Problems Problem Status Onset Chronic Disease Management/Transitional Care Program Active Stroke Acute Subdural hematoma Acute Diabetes mellitus Acute Deep venous thrombosis of right upper extremity Acute Chronic renal failure Acute CVA (cerebral vascular accident) Acute Hyponatremia Acute Anemia Acute Hypochloremia Acute Right sided weakness Acute End stage renal disease Acute
--- NOTE | 2017-12-16 14:12 | ASMTCMCOM ---
CM Note CM Note Notes: Spoke with patient's son Deyvi who agrees to discharge to [facility]. Azul from [facility] came by hospital to meet patient and spoke with Deyvi on the phone. I also spoke with Mechelle who manages [facility], the [facility] where patient lives. We talked about how discharge to [facility] and then discharge from [facility] would work. She seems to understand that patient requires too much assistance to go home right now, and that she and the family need some time to make the home safe for her when she does. As of now, everyone is in agreement with the plan to go to [facility]. This will likely happen tomorrow after patient received HD. Case Management will help faciliate transport. Date Signed: 12/16/2017 02:12 PM Electronically Signed By:Janette Hilton RN
[2017-12-16] MEDS: ASPIRIN 325 MG TAB PO SCH (18:14)
[2017-12-16] MEDS: CLOPIDOGREL BISULFATE 75 MG TAB PO SCH (18:16)
[2017-12-16] MEDS: BIMATOPROST 0.01% 2.5 ML OPHT.BTL EACHEYE SCH (21:34)
[2017-12-16] MEDS: SIMVASTATIN 40 MG PO SCH (21:35)
[2017-12-17] MEDS: INSULIN REGULAR HUMAN 100 UNIT/ML UNIT SC SCH ×3 (01:32→13:17)
[2017-12-17] MEDS: BRINZOLAMIDE EACHEYE SCH (09:55)
[2017-12-17] MEDS: EYE EACHEYE SCH (09:55)
[2017-12-17] MEDS: BRIMONIDINE EACHEYE SCH (09:55)
[2017-12-17] MEDS: INSULIN GLARGINE 100 UNITS/ML SYRINGE SC SCH (09:58)
[2017-12-17] MEDS: LEVOTHYROXINE 112 MCG TAB PO SCH (09:58)
[2017-12-17] MEDS: PANTOPRAZOLE SODIUM 40 MG TAB PO SCH (09:59)
[2017-12-17] MEDS: PRESERVISION AREDS2 FORMULA EYE VIT 1 EACH PO SCH (09:59)
--- NOTE | 2017-12-17 12:01 | PDIAF ---
- Diagnosis Diagnosis: CVA Code Status: Do Not Resuscitate - Medication Management Discharge Medications: Medications to Continue on Transfer Clopidogrel Bisulfate [Plavix (*)] 75 mg PO DAILY18 03/05/13 [Last Taken ] Losartan Potassium [Cozaar] 100 mg PO DAILY18 03/05/13 [Last Taken 12/11/17] Simvastatin [Zocor 40 mg] 40 mg PO HS 03/05/13 [Last Taken 12/11/17] amLODIPine BESYLATE [Norvasc 10 mg (*)] 5 mg PO DAILY18 03/05/13 [Last Taken ] Aspirin [Aspirin 325 mg (*)] 325 mg PO DAILY18 01/17/14 [Last Taken 12/11/17] Levothyroxine [Synthroid 112 mcg (*)] 112 mcg PO DAILY 01/17/14 [Last Taken ] Sevelamer Carbonate [Renvela] 1,600 mg PO BIDMEAL 01/17/14 [Last Taken 12/12/17] Herbals/Supplements -Info Only 1 ea PO DAILY 06/01/14 [Last Taken 04/22/17] Bimatoprost [Lumigan] 1 drop EACHEYE HS 03/06/16 [Last Taken 12/11/17] Brinzolamide/Brimonidine Tart [Simbrinza 1%-0.2% Eye Drops] 1 drop EACHEYE BID 03/06/16 [Last Taken 12/12/17] Insulin Detemir [Levemir] 16 units SC AUGUSTIN@08 03/06/16 [Last Taken 12/12/17] Insulin Detemir [Levemir] 20 units SC MOTUWETHFRSA@08 03/06/16 [Last Taken 12/11] C/E/Zn/Cu/OM3/DHA/EPA/LUT/ZEAX [Preservision Areds 2 Softgel] 2 each PO DAILY [Last Taken 12/12/17] Lansoprazole [Prevacid] 30 mg PO BID 04/22/17 [Last Taken 12/12/17] Atenolol [Tenormin 50 mg (*)] 50 mg PO DAILY PRN 06/13/17 [Last Taken Unknown] Folic Acid/Vit B Complex and C [Renal Vitamin Tablet] 0.8 mg PO DAILY@18 [Last Taken 12/11/17] Sevelamer Carbonate [Renvela] 1,600 mg PO DAILY@12 06/13/17 [Last Taken 12/12/17 ] Refresh Tears 1 drop EACHEYE PRN PRN 06/14/17 [Last Taken Unknown] Acetaminophen [Tylenol Rectal] 650 mg NH Q4HRS PRN supp 12/17/17 [Last Taken Unknown] Discharge Medications: Refer to the Discharge Home Medication list for PRN reason. - Orders Services needed: Registered Nurse, Physical Therapy, Occupational Therapy Isolation Type: Droplet Isolation Diet Texture: Dysphagia 3 - Advanced - Moist, Bite-Size, Thin Liquids, Meds Whole w/Liquids, Meds Whole in Puree - Follow Up Care Current Providers and Referrals: Octavio Heath MD [Primary Care Provider] - As per Instructions
[2017-12-17] MEDS: LOSARTAN POTASSIUM 50 MG TAB PO SCH (12:15)
[2017-12-17 13:21] VITALS: BP 128/49
--- NOTE | 2017-12-17 15:21 | GDS ---
[f rep st] DISCHARGE SUMMARY DISCHARGE DIAGNOSES: 1. Acute cerebrovascular accident. 2. Carotid stenosis. 3. End-stage renal disease. 4. Atrial fibrillation. 5. Coronavirus. 6. Diabetes mellitus type 2. 7. Chronic hypoxemic respiratory failure. 8. Hyponatremia. PHYSICAL EXAM: GENERAL: The patient is alert. VITAL SIGNS: Afebrile at 36.9, pulse is 60, respira tory rate is 20, blood pressure is 128/49. She is saturating 97% on 2 L. I have seen and evaluated the patient on the day of discharge. HOSPITAL COURSE: Patient is a 77-year-old female presenting to the emergency room with complaints of acute catatonia. She was evaluated and diagnosed with: 1. Acute CVA. During this hospitalization, she received tPA. She has been restarted on her aspirin and Plavix and will require rehabilitation. 2. Carotid stenosis. Per the family, no surgery is warranted. 3. End-stage renal disease. She will continue hemodialysis. 4. History of atrial fibrillation. She has a pacemaker and is in paced rhythm. 5. Coronavirus. 6. Diabetes mellitus type 2. Blood sugar is managed with insulin. 7. Chronic hypoxemic respiratory failure. We will continue her supplemental oxygen. 8. Hyponatremia. This is improved. DISPOSITION: The patient will be discharged to [facility] for further rehabilitation and hemodialysi s. There are no pending studies. DISCHARGE MEDS: Please refer to EMR form. I have discussed the patient's disposition with the case repairer as well as the patient's family. I have spent greater than 35 minutes in the care, coordinat ion, and management of this patient's disposition. /[id number]/MODL
--- NOTE | 2017-12-17 16:19 | ASMTLACE ---
LACE Length of stay for Answers: 4-6 days current admission Acuity / Level of Answers: Yes Care: Did the patient have an inpatient admission? Comorbidities - select Answers: Cerebrovascular disease all that apply (CVA, TIA, aneurysms, vasc ular dementia) Congestive heart failure Diabetes (uncontrolled or controlled) Other Notes: ESRD, HTN # of Emergency department Answers: 3-4 visits in the last 6 months Score: 15 Date Signed: 12/17/2017 04:18 PM Electronically Signed By:Carolin Koch RN
--- NOTE | 2017-12-17 16:29 | SOAPPROG ---
SORAJESH Progress Note Assessment/Plan: Assessment: [LATE ENTRY NOTE FOR 12.16.17] 1. ESRD. HD tomorrow on MWF schedule. 2. AVF stenosis. Fistulagram earlier today. Should help with R arm swelling ultimately. 3. Acute CVA. Not candidate for anticoagulation. Family does not want carotid surgery. Med mgmt. 4. Dispo. Out after dialysis tomorrow. Plan: 12/15/17 18:05 12/17/17 16:28 Subjective: LATE ENTRY. NOTE FOR 12.16.17. Pt was seen. She had fistulagram earlier today with SENIOR OFFICE SUPPORT ASSISTANT SOSA of stent. No new complaints. Family would like early dialysis in am so she can leave afterwards. Objective: Vital Signs Temp Pulse Resp BP Pulse Ox 36.9 C 60 25 H 128/49 H 97 12/17/17 13:18 12/17/17 13:18 12/17/17 13:18 12/17/17 13:18 12/17/17 13:18 Laboratory Results 12/14/17 05:20 12/17/17 04:34 12/16/17 12/17/17 12/18/17 05:59 05:59 05:59 Intake Total 980 980 Balance 980 980 PT 14.6 SEC (12.0-15.0) 12/12/17 19:50 INR 1.12 (0.83-1.16) 12/12/17 19:50 VSS, reviewed, as per chart Chronically ill and weak appearing female, in bed RRR, no m/g/r CTAB ABdom soft, nontender Does not move R arm or leg. Able to move L arm and wiggle toes on left R arm very swollen. AVF with good thrill ICD10 Worksheet Patient Problems: Problems Problem Status Onset Chronic Disease Management/Transitional Care Program Active Stroke Acute Subdural hematoma Acute Diabetes mellitus Acute Deep venous thrombosis of right upper extremity Acute Chronic renal failure Acute CVA (cerebral vascular accident) Acute Hyponatremia Acute Anemia Acute Hypochloremia Acute Right sided weakness Acute End stage renal disease Acute
--- NOTE | 2017-12-17 17:13 | ASDISCHSUM ---
Discharge Information Plan Status:SNF Medically Cleared to Leave: Discharge Date:12/17/2017 03:55 PM CM D/C Disposition: ADT D/C Disposition:Shelter Facility Projected Discharge Date:12/17/2017 11:00 AM Transportation at D/C:ALS/BLS Discharge Delay Reason: Follow-Up Date:12/17/2017 11:00 AM Discharge Slot: Final Diagnosis:Acute CVA, ESRD, DM-2, CHF, Afib Placement Information Referral [facility] Referral ID:[id number] Provider Name: Address 1: Phone Number: Address 2: Fax Number: City: [facility] Factors: State: Referral Type:*Halfway/SNF Referral ID:[id number] Provider Name:[facility] Address 1:[address] Address 2: City:[place] Selection Factors: State:[place] Patient Contact Information Contact Name:HAM Relationship: Address:[address] Work Phone: City:[facility] Phone: [facility]/Zip Code:[place] [address] Email: Financial Information Financial Class:Medicare Primary Plan Desc:MEDICARE INPATIENT Primary Plan Number:[id number] Secondary Plan Desc:MEDICAID [place] Secondary Plan Number:[id number] Assessment Information LACE LACE Length of stay for Answers: 4-6 days current admission Acuity / Level of Answers: Yes Care: Did the patient have an inpatient admission? Comorbidities - select Answers: Cerebrovascular disease all that apply (CVA, TIA, aneurysms, vasc ular dementia) Congestive heart failure Diabetes (uncontrolled or controlled) Other Notes: ESRD, HTN # of Emergency department Answers: 3-4 visits in the last 6 months Score: 15 Date Signed: 12/17/2017 04:18 PM Electronically Signed By:Carolin Koch RN [facility] Progress Note CM Note CM Note Notes: 77yr old female admitted for Acute CVA, ESRD, DM-2, CHF, Afib. She has a Hx of CVA x 3, ESRD, DM-2, CHF, Afib, HTN, Pacer, Glaucoma. Patient experiencing worsening aphasia R sided weakness. Tx TPA. CM to follow for discharge needs. Date Signed: 12/13/2017 09:47 AM Electronically Signed By:Miroslava Wallace LCSW [facility] Progress Note CM Note CM Note Notes: "Palliative Meeting" Emma with son-JOSE Chaparro, patient's and Caregiver- Mechelle. Family from [facility]. Son acts as plug maker. They are Yazidism. 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 They understand that she is not a surgical candidate. Patient is DNR/DNI, Family would like her to be as clear thinking when she moves from this life to the next and don't want her on medicine that might cloud or impair her thinking. They would like her to have as much time as possible that medicine can give her. They wish to continue w/dialysis and come to the hospital when needed. They would like to take her home but she lives on the 2nd floor and unable to move her R side. Her son and are her care providers along with other Buddhists who live at their commune. At this time they are unable to take her home. Presently, patient can not transfer without max assist. I'm not sure what her dialysis clinic requires? Therapies are recommending In-pt Rehab. [facility] In-pt Rehab does not offer dialysis. Contact made to No [facility] Admissions in [facility]. They suggest that patient go to LTAC where she can get dialysis and then when she is able, she could go to their In-pt Rehab. She will need to be able to transfer herself to be transported 3x/wk to dialysis. If she is unable to transfer they will be making Hospice arrangements. It seems important now to have a cognitive eval to determine patient's cog abilities. Family might find that this is asking too much of their loved one and want to choose Hospice. Date Signed: 12/14/2017 05:02 PM Electronically Signed By:Miroslava Wallace LCSW [facility] CM Progress Note CM Note CM Note Notes: * Please see CM note 12/14 * Patient's family is still undecided on discharge plan. Given this, I sent referrals to a few area LTACs and SNFs. I also spoke with VIOLETTE Shipman at [facility] who says that patient may still come for dialysis there even though she cannot transfer independently. Per Ramonita, patient is almost always accompanied by a caregiver and her son, and there are at least two staff on duty. If patient goes to SNF and they can transport her, keeping her chair time at [facility] should not be a problem. We will wait for family to decide what they want for patient and proceed. Date Signed: 12/15/2017 10:44 AM Electronically Signed By:Janette Hilton RN [facility] CM Progress Note CM Note CM Note Notes: Spoke with patient's son Deyvi who agrees to discharge to [facility]. Azul from [facility] came by hospital to meet patient and spoke with Deyvi on the phone. I also spoke with Mechelle who manages [facility], the [facility] where patient lives. We talked about how discharge to [facility] and then discharge from [facility] would work. She seems to understand that patient requires too much assistance to go home right now, and that she and the family need some time to make the home safe for her when she does. As of now, everyone is in agreement with the plan to go to [facility]. This will likely happen tomorrow after patient received HD. Case Management will help faciliate transport. Date Signed: 12/16/2017 02:12 PM Electronically Signed By:Janette Hilton RN Case Management Discharge Plan Note Case Management Discharge Discharge Order Complete? Answers: Yes Patient to Obtain Answers: Other Notes: [facility] Medications Transportation Arranged Answers: [facility] Stretcher Transport will Pick (Date 12/17/2017 04:00 AM & Time) Case Management Transport Answers: Yes Form Complete Agency/Facility Transfer Answers: Yes Report Printed & Faxed to Receiving Agency Family Notified Answers: Yes Discharge Comments Notes: Pt will dc to [facility] SNF today. Spoke w/Azul at [facility]- they are ready to accept. Orders/info sent through [employer]. Pt's son aware of dc. Discussed w/hospitalist and RN who will call report to . Date Signed: 12/17/2017 03:59 PM Electronically Signed By:Carolin Koch RN Intervention Information
[2017-12-19] MEDS ORDERED: INSULIN DETEMIR 16 UNIT SC SCH (08:00)
[2017-12-19] MEDS ORDERED: INSULIN GLARGINE 100 UNITS/ML SYRINGE SC SCH (08:00)
== END 2017-12-17 15:55 | DRG 981 ==
LOC: EDUNIT# → F2N 22:35 → F3N 12-14 15:51
PROVIDERS: ADMIT Internal Medicine; ATTEND Internal Medicine
PROC: 3E03317 Introduction of Other Thrombolytic into Peripheral Vein, Percutaneous Approach (ICD-10-PCS; 2017-12-12)
PROC: 5A1D70Z Performance of Urinary Filtration, Intermittent, Less than 6 Hours Per Day (ICD-10-PCS; 2017-12-13)
PROC: 05753ZZ Dilation of Right Subclavian Vein, Percutaneous Approach (ICD-10-PCS; principal; 2017-12-16)
DX: I63.9 Cerebral infarction, unspecified (principal); I13.2 Hypertensive heart and chronic kidney disease with heart failure and with stage 5 chronic kidney disease, or end stage renal disease; N18.6 End stage renal disease; T82.858A Stenosis of other vascular prosthetic devices, implants and grafts, initial encounter; I50.32 Chronic diastolic (congestive) heart failure; J96.11 Chronic respiratory failure with hypoxia; E87.1 Hypo-osmolality and hyponatremia; I69.351 Hemiplegia and hemiparesis following cerebral infarction affecting right dominant side; R29.714 NIHSS score 14; I69.320 Aphasia following cerebral infarction; I65.23 Occlusion and stenosis of bilateral carotid arteries; I48.91 Unspecified atrial fibrillation; E11.9 Type 2 diabetes mellitus without complications; Z66 Do not resuscitate; Z95.0 Presence of cardiac pacemaker; Z79.4 Long term (current) use of insulin; Z99.2 Dependence on renal dialysis; B97.29 Other coronavirus as the cause of diseases classified elsewhere
CPT/HCPCS: 82947-QW; 92526-GN; 92610-GN; 97162-GP; 97166-GO; 97530-GO; C1725; C1769; C1894; G8978-GP-CM; G8979-GP-CK; G8987-GO-CM; G8988-GO-CK; G8996-GN-CJ; G8997-GN-CI; G8998-GN-CJ; J1644; J1815; J2997; Q9967

== ENCOUNTER → 2018-08-18 | Day surgery (SDC) | payer OTHER, MEDICAID ==
[~2018-08-18] MED LIST changes: +IOPAMIDOL (ISOVUE-300) 100 ML BTL ONE; -LIDOCAINE 1% *Not for Epidural 20 ML MDV ONE
== END | disposition home or self-care (01) ==
LOC: FIMAGING 09:48
PROVIDERS: ATTEND Radiology Diagnostic Radiology
DX: T82.858A Stenosis of other vascular prosthetic devices, implants and grafts, initial encounter (principal)
CPT/HCPCS: 36902; 76937; 99152; C1769; C1894; C1725; J1644; Q9967

== ENCOUNTER → 2018-11-07 | Day surgery (SDC) | payer OTHER, MEDICAID ==
[~2018-11-07] MED LIST changes: +HEPARIN 10,000 UNIT/10 ML MDV (1,000 UNIT/ML) ONE; -IOPAMIDOL (ISOVUE-300) 100 ML BTL ONE
== END | disposition home or self-care (01) ==
LOC: FIMAGING 14:58
PROVIDERS: ATTEND Radiology Diagnostic Radiology
DX: T82.856A Stenosis of peripheral vascular stent, initial encounter (principal)
CPT/HCPCS: 36904; C1769; C1894; C1725; J1644

== ENCOUNTER → 2018-11-10 | Day surgery (SDC) | payer OTHER, MEDICAID ==
[~2018-11-10] MED LIST changes: -HEPARIN 10,000 UNIT/10 ML MDV (1,000 UNIT/ML) ONE; +IOPAMIDOL (ISOVUE-300) 100 ML BTL ONE; +LIDOCAINE 1% 300 MG/30 ML SDV ONE
== END | disposition home or self-care (01) ==
LOC: FIMAGING 10:27
PROVIDERS: ATTEND Internal Medicine Nephrology
PROC: 05753ZZ Dilation of Right Subclavian Vein, Percutaneous Approach (ICD-10-PCS; principal; 2018-11-10)
PROC: B51M1ZA Fluoroscopy of Right Upper Extremity Veins using Low Osmolar Contrast, Guidance (ICD-10-PCS; principal; 2018-11-10)
DX: T82.856A Stenosis of peripheral vascular stent, initial encounter (principal)
CPT/HCPCS: 36901; 36908; C1769; C1892; C1894; C1725; J1644; Q9967

== ENCOUNTER → 2018-12-01 | Outpatient (CLI) | payer OTHER, MEDICAID | LOC: BHFA 11:30 | PROVIDERS: ATTEND Internal Medicine Cardiovascular Disease | DX: I95.9 Hypotension, unspecified (principal) ==

== ENCOUNTER → 2019-01-31 | Day surgery (SDC) | payer OTHER, MEDICAID | LOC: FIMAGING 10:00 ==

== ENCOUNTER 2019-02-08 07:30 | Emergency (ER) | payer OTHER, MEDICAID | END 2019-02-08 10:25 | disposition E ==